=== PATIENT | female | born 1980 | race Caucasian/White ===

== ENCOUNTER → 2017-11-16 11:48 | Outpatient (CLI) | payer MEDICAID, SELFPAY ==
--- NOTE | 2017-11-16 11:54 | RAD_ITS ---
STUDY: X-RAY CHEST REASON FOR EXAM: Female, 37 years old. Chronic cough and wheezing since August 2016. TECHNIQUE: PA and lateral views of the chest. COMPARISON: None. FINDINGS: The lungs are clear and expanded. There is no demonstrated pleural abnormality. Normal size heart. Normal mediastinum and sherie. Normal visualized pulmonary arteries. Normal visualized aortic arch and descending thoracic aorta. Normal visualized thoracic spine. Normal visualized ribs, clavicles, and shoulders. There is no demonstrated abnormality of the visualized soft tissue structures of the upper abdomen. RAD/Chest PA and Lateral IMPRESSION: Normal x-ray examination of the chest. Electronically Signed: Dmitry Cormier DO at 12:37 EST Tel [phone], Service support ,
== END ==
PROVIDERS: Family Provider Family Medicine; PCP Family Medicine; Visit Provider Family Medicine
DX: R05 Cough (principal)
CPT/HCPCS: 71046

== ENCOUNTER → 2017-11-16 12:51 | Outpatient (CLI) | payer MEDICAID, SELFPAY ==
--- NOTE | 2017-11-16 | LES_PTH ---
PATIENT: CODY DUNNE LOC: [facility] U#:[id number] AGE/SX: 45/F ROOM: RE11/16/[address]: Dr. Pauly Trujillo DO : 1980 BED: DIS: SPEC #: [id number] RECD: 11/16/17 14:53 STATUS: KHOA NAYAN #: [id number] GUERO: 11/16/17 00:[address]: Pauly Trujillo DEPT: SURGICAL PATHOLOGY RECD BY: Dallin Iverson Tissues: A - Skin of arm B - Skin of arm Procedures: Surgery Specimen Level IV HEADER OPERATION: Excision lesion left upper arm; excision lesion right upper arm PRE-OP DIAGNOSIS: Rule out ATN left upper arm; rule out dermatofibroma vs ATN right upper arm TISSUE SUBMITTED: A ? Left upper arm, B ? Right upper arm MICROSCOPIC DIAGNOSIS A. Skin lesion of left upper arm, biopsy: Consistent with solar lentigo. B. Skin lesion of right upper arm, biopsy: Dermatofibroma. AM:sabine 11/17/17 MICROSCOPIC DESCRIPTION Slides are reviewed. GROSS DESCRIPTION A - Received is one container labeled with the patient's name and not further designated. The specimen consists of an irregular fragment of light lopez skin measuring 1.2 x 0.5 x 0.2 cm. The specimen is inked, sectioned and totally submitted in one cassette. B - Received is one container labeled with the patient's name and not further designated. The specimen consists of an irregular fragment of light lopez skin measuring 1 x 0.5 x 0.2 cm. The specimen is inked, sectioned and totally submitted in one cassette. / AM:sabine 11/16/17 TC:5 CPT: 84972
== END ==
PROVIDERS: Family Provider Family Medicine; PCP Family Medicine; Visit Provider Family Medicine
DX: D23.61 Other benign neoplasm of skin of right upper limb, including shoulder (principal)
CPT/HCPCS: 71046; 88305

== ENCOUNTER 2018-04-30 20:14 | Emergency (ER) | payer MEDICAID, SELFPAY ==
[2018-04-30 20:15] VITALS: BP 150/98; PULSE 99; RESP 16; TEMP 37.4; O2SAT 98; BMI 27.5
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
[2018-04-30] MEDS: HYDROcodone Bitartrate/Apap 5/325 Tablet PO (21:43)
== END 2018-04-30 21:44 | disposition home or self-care (01) ==
LOC: ED 21:31
PROVIDERS: Emergency Provider Emergency Medicine; Family Provider Family Medicine; PCP Family Medicine
DX: S16.1XXA Strain of muscle, fascia and tendon at neck level, initial encounter (principal); S29.012A Strain of muscle and tendon of back wall of thorax, initial encounter; V49.40XA Driver injured in collision with unspecified motor vehicles in traffic accident, initial encounter; Y93.9 Activity, unspecified; Y92.410 Unspecified street and highway as the place of occurrence of the external cause; Y99.8 Other external cause status; Z72.0 Tobacco use
CPT/HCPCS: 99282

== ENCOUNTER → 2018-05-03 17:04 | Outpatient (CLI) | payer MEDICAID, SELFPAY ==
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
== END ==
PROVIDERS: Family Provider Family Medicine; PCP Family Medicine; Visit Provider Family Medicine
DX: M54.2 Cervicalgia (principal); R20.0 Anesthesia of skin; V89.2XXA Person injured in unspecified motor-vehicle accident, traffic, initial encounter
CPT/HCPCS: 72050

== ENCOUNTER → 2019-04-11 14:18 | Outpatient (CLI) | payer MEDICAID, SELFPAY ==
[2018-10-29 16:15] VITALS: BMI 27.5
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
== END ==
PROVIDERS: Family Provider Family Medicine; PCP Family Medicine; Referring Provider Family Medicine; Visit Provider Family Medicine
DX: M25.511 Pain in right shoulder (principal)
CPT/HCPCS: 73030

== ENCOUNTER → 2019-06-13 12:35 | Outpatient (CLI) | payer MEDICAID, SELFPAY ==
[2018-10-29 16:15] VITALS: BMI 27.5
--- NOTE | 2019-06-13 12:46 | MRI_ITS ---
STUDY: MRI LEFT MIDFOOT REASON FOR EXAM: Female, 39 years old. TECHNIQUE: Standardized fat and water weighted pulse sequences were obtained in all 3 orthogonal planes. COMPARISON: None. FINDINGS: Normal talonavicular articulation. Normal calcaneocuboid articulation. Normal navicular-cuneiform articulations. Normal intercuneiform articulations. Small ganglion cyst of the lateral aspect of the tibiotalar joint (sagittal series 4 images 13-19). Mild arthrosis of the first tarsometatarsal articulation laterally (sagittal series 4 image 17). Normal Lisfranc ligament. Normal second and third tarsometatarsal articulations. Normal cuboid fourth and cuboid fifth tarsometatarsal articulation. Normal first through fifth metatarsi. Hammertoe deformities (sagittal series 4 images 2-17). Normal intrinsic muscles of the mid and forefoot region. Normal extensor digitorum brevis muscle. Normal subcutis adipose space. MRI/Lower Ext/No Jt/w/o IMPRESSION: Mild arthrosis of the first tarsometatarsal joint laterally. Hammertoe deformities. Ganglion cyst of the lateral aspect of the tibiotalar joint. Electronically Signed: Beck Love MD at 15:06 EDT , Service support ,
== END ==
PROVIDERS: Family Provider Family Medicine; PCP Family Medicine; Referring Provider Podiatrist; Visit Provider Podiatrist
DX: M84.375D Stress fracture, left foot, subsequent encounter for fracture with routine healing (principal); M79.672 Pain in left foot; S90.32XA Contusion of left foot, initial encounter
CPT/HCPCS: 73718

== ENCOUNTER 2021-01-27 11:02 | Emergency (ER) | payer MEDICAID, SELFPAY ==
[2020-12-10 13:10] VITALS: BMI 27.9
[2021-01-27 11:02] VITALS: BP 142/100; PULSE 74; RESP 16; TEMP 36.3; O2SAT 99; BMI 27.9
--- NOTE | 2021-01-27 11:12 | ED.VIS.GEN ---
History of Present Illness Chief Complaint: Abd Pain Informant: Patient Narrative: 40-year-old female presenting with left lower quadrant pain. She states she noticed this a couple of days ago and thought maybe she had gas. She states that she went to 3 local gas stations and was not able to find [employer] but did take some ibuprofen and the pain resolved. Patient states that this morning at about 5:30 AM she noticed the pain coming again. She describes it as sharp and nonradiating. She states she was sweaty and nauseous initially now she does has pain. She denies constipation or diarrhea. She denies urinary or vaginal complaints. She is not had a fever, chills. Patient has no history of kidney stones. She states she mostly has anxiety and depression problems but no other major medical issues. Past Medical History - Allergies and Home Meds Allergies/Adverse Reactions: Allergies shellfish derived Adverse Reaction (Verified 01/27/21 11:02) Vomiting Primary Care Physician: Pauly Trujillo DO [Primary Care Provider] - Prior records reviewed: Yes Past Medical History: - - Anxiety, depression Surgical History: noncontributory Lives: Alone Smoking Status: Current some day smoker Alcohol: None Drugs: None Review of Systems General: Denies: Chills, Fever, Sweats Eyes: Denies: Visual changes - bilaterally, Diplopia ENT: Denies: Rhinorrhea, Sore throat Cardiovascular: Denies: Chest pain, Palpitations Respiratory: Denies: Dyspnea, Cough, Dyspnea on exertion Gastrointestinal: Reports: Abdominal pain, Nausea. Denies: Vomiting, Diarrhea, Constipation, Melena, Hematochezia Genitourinary: Denies: Dysuria, Hematuria, Frequency Musculoskeletal: Denies: Back pain, Extremity Pain Skin: Denies: Rash, Wounds Neurological: Denies: Headache, Weakness, Numbness Psych: Denies: Depression, Anxiety, Suicidal thoughts, Suicidal ideations, -, - Physical Exam Vital Signs/Narrative: Vital Signs Temp Pulse Resp BP Pulse Ox 01/27/21 11:02 97.3 F L 74 16 142/100 H 99 Inital Vital Signs reviewed: Yes General: Well nourished, No Acute Distress Head: Normocephalic, Atraumatic Eyes: Perrl, EOMI ENT: Moist mucous membranes, No rhinorrhea Cardiovascular: Regular rate, Regular rhythm, No murmurs Respiratory: No distress, CTA bilaterally Abdomen: Soft, Nondistended, Tender - Mild tenderness to palpation left lower quadrant. Abdomen is nonperitoneal. Back: CVA tenderness - Mild left CVA tenderness. Negative for: Spinal tenderness Extremities: Nontender, No edema Skin: Normal color, No rash Neurological: Alert, Oriented x3, Cranial nerves II-XII grossly intact, Normal Strength, Normal Sensation Psychological: Normal affect, Normal Mood Diagnostic/Tx/Re-eval Clinical Impression(s) from Imaging Studies Abdomen/Pelvis CT 01/27/21 12:34 IMPRESSION: 1. Mild left hydronephrosis and left hydroureter secondary to 4.5 mm partially obstructing calculus in the left distal ureter. 2. 5.6 mm nonobstructing calculus in the left upper renal pole. Electronically Signed: Pasquale Archer MD at 13:16 EDT , Service support , Laboratory Data 01/27/21 01/27/21 01/27/21 11:14 11:14 11:37 WBC 14.5 H RBC 4.66 Hgb 13.5 Hct 42.2 MCV 90.6 MCH 29.0 MCHC 32.0 RDW Std Deviation 39.4 RDW Coeff of Nona 11.9 Plt Count 391 MPV 11.0 Immature Gran % (Auto) 0.400 Neut % (Auto) 87.6 H Lymph % (Auto) 8.2 L [place] % (Auto) 3.1 Eos % (Auto) 0.4 Baso % (Auto) 0.3 Absolute Neuts (auto) 12.7 H Absolute Lymphs (auto) 1.19 Nucleated RBC % 0 Sodium 138 Potassium 3.6 Chloride 106 Carbon Dioxide 28.0 Anion Gap 4 L BUN 15 Creatinine 0.88 Estim Creat Clear Calc 75.70 Est GFR (MDRD) Af Amer 91 Est GFR (MDRD) Non-Af 75 BUN/Creatinine Ratio 17.1 Glucose 166 H Calcium 9.5 Urine Color Yellow Urine Clarity Sl. Cloudy Urine pH 5.0 Ur Specific [place] 1.025 Urine Protein 30 H Urine Glucose (UA) Normal Urine Ketones 5 H Urine Occult Blood 250 H Urine Nitrite Negative Urine Bilirubin 1 H Urine Urobilinogen 1 H Ur Leukocyte Esterase 25 H Urine RBC > 100 SEEN Urine WBC 0 SEEN Ur Squamous Epith Cells 5-10 SEEN Urine Bacteria 0 SEEN Urine Mucus 0 SEEN - Medical Decision Making 40-year-old female presenting with left lower abdominal pain and on exam she has left CVA tenderness. Obtained blood work and this shows a slight leukocytosis of 14.1 otherwise her CBC is normal. Patient's BMP is unremarkable. Patient has urinalysis which shows hematuria without UTI. She is given Toradol and morphine in the ED as well as Zofran with improved comfort. CT of the abdomen pelvis without contrast shows a mild left hydronephrosis and left hydroureter secondary to 4.5 mm partially obstructing calculus in the left distal ureter. Patient will be given follow-up with Dr. Rowley. She is given prescriptions for Percocet, Zofran, Flomax given the location of her stone in the distal ureter. Patient given return precautions. Patient able discharge at this time. Impression: 1. Left flank pain 2. Hematuria 3. 4.5 mm left distal ureteral stone ED Disposition - Plan for ED Patient: Disposition: Home or Assisted Living Instructions: ED Kidney Stone w/ Colic Prescriptions: Tamsulosin HCl [Flomax] 0.4 mg PO DAILY #7 capsule Prescription Printed Oxycodone HCl/Acetaminophen [Percocet 5/325] 1 tablet PO Q6H PRN PRN 3 Days #12 tab PRN Reason: Pain Prescription Printed Ondansetron [Zofran Odt] 4 mg PO Q8H PRN PRN #14 tablet PRN Reason: Nausea Prescription Printed Referrals: Pauly Trujillo DO [Primary Care Provider] - David Rowley MD [STAFF PHYSICIAN] -
[2021-01-27] MEDS: Ketorolac 15 MG/ML Vial IV (11:27)
[2021-01-27] MEDS: Ondansetron 4 MG/2 ML Vial IV (11:27)
[2021-01-27 11:28] LABS: Absolute Lymphocyte Count 1.19 X10^3/uL (0.83-4.51); Absolute Neutrophil Count 12.7 X10^3/uL (2.0-7.7); Basophil# 0.05 X10^3/uL; Basophil% 0.3 % (0-1); Eosinophil# 0.06 X10^3/uL; Eosinophils% 0.4 % (0-5); Hematocrit 42.2 % (37-47); Hemoglobin 13.5 g/dL (12.0-15.0); Lymphocyte # 1.19 X10^3/ul (4.0); Lymphocyte % 8.2 % (19-41); Mean Corpuscular Volume 90.6 fL (81-99); Monocyte# 0.45 X10^3/uL; Monocyte% 3.1 % (0-10); NRBC Flagged by Analyzer 0 % (0-5); Neutrophil # 12.73 X10^3/uL (2.7-7.7); Neutrophil % 87.6 % (47-70); Platelet Count 391 K/mm3 (150-450); RBC Distribution Width CV 11.9 % (11.6-14.6); RBC Distribution Width SD 39.4 fl (35.1-43.9); Red Blood Count 4.66 M/mm3 (4.2-5.4); White Blood Count 14.5 K/mm3 (4.4-11.0)
[2021-01-27 11:41] LABS: Bacteria 0 SEEN /hpf (None Seen); Mucous, Urine 0 SEEN /hpf (<or=2+); White Blood Cells 0 SEEN /hpf (0-5)
[2021-01-27 11:45] LABS: Anion Gap 4 (5-15); BUN 15 mg/dL (7-18); BUN/Creat Ratio 17.1 RATIO (10-20); Calcium,Total 9.5 mg/dL (8.5-10.1); Chloride 106 mmol/L (98-107); Creatinine, Serum 0.88 mg/dL (0.55-1.02); EST Glomerular Filtration Rate 75 mL/min (>60); Est Glom Filt Rate - Afr Amer 91 mL/min (>60); Glucose 166 mg/dL (74-106); Potassium 3.6 mmol/L (3.5-5.1); Sodium Level 138 mmol/L (136-145)
[2021-01-27 12:32] LABS: Color, Urine Yellow (Yellow); Glucose, Dipstick Normal (Normal); Ketone-Dipstick 5 mg/dl (Negative); Leukocyte Esterase-Dipstick 25 /ul (Negative); Nitrite-Dipstick Negative (Negative); Occult Blood-Urine 250 /ul (Negative); Protein-Dipstick 30 mg/dl (Negative); Specific Gravity, Urine 1.025 (1.002-1.030); Urine Bilirubin Dipstick 1 mg/dL (Negative); Urine Clarity Sl. Cloudy (Clear); Urine Urobilinogen 1 mg/dl (Normal)
--- NOTE | 2021-01-27 12:34 | CT_ITS ---
EXAM: CT ABDOMEN AND PELVIS WITHOUT INTRAVENOUS CONTRAST CLINICAL INDICATION: Left flank pain. TECHNIQUE: Helically acquired images were obtained of the abdomen and pelvis without intravenous contrast. This CT exam was performed using one or more of the following dose reduction techniques: automated exposure control, adjustment of the mA and/or kV according to patient size, and/or use of iterative reconstruction technique. This report was created using CD[employer] report generation technology. COMPARISON: None. FINDINGS: LOWER THORAX: Unremarkable. Lung bases are clear. No cardiomegaly. No significant pericardial effusion. ABDOMEN: LIVER: Unremarkable. Homogeneous. GALLBLADDER AND BILE DUCTS: Unremarkable. No calcified gallstones. No gallbladder distention or wall edema. No intra- or extrahepatic biliary ductal dilation. PANCREAS: Unremarkable. No focal cystic mass. SPLEEN: Unremarkable. Normal size without focal cystic or solid mass. ADRENALS: Unremarkable. No nodules. KIDNEYS AND URETERS: Mild left hydronephrosis and mild left hydroureter secondary to 4.5 mm partially obstructing calculus in the left distal ureter. 5.6 mm nonobstructing calculus in the left upper renal pole. Normal right kidney. Normal renal size and position. STOMACH AND BOWEL: Unremarkable. No stomach or bowel distention. No focal inflammatory change. PELVIS: APPENDIX: Normal. BLADDER: Unremarkable. REPRODUCTIVE: Unremarkable as visualized. No mass. ABDOMEN and PELVIS: INTRAPERITONEAL SPACE: Unremarkable. No ascites or other fluid collection. No free air. BONES/JOINTS: Unremarkable. No suspicious lytic or blastic abnormality. SOFT TISSUES: Unremarkable. No discrete abdominal or pelvic wall hernia. VASCULATURE: Unremarkable. Abdominal aorta is non-dilated. LYMPH NODES: Unremarkable. No enlarged lymph nodes. CT/Abdomen/Pelvis without Cont IMPRESSION: 1. Mild left hydronephrosis and left hydroureter secondary to 4.5 mm partially obstructing calculus in the left distal ureter. 2. 5.6 mm nonobstructing calculus in the left upper renal pole. Electronically Signed: Pasquale Archer MD at 13:16 EDT , Service support ,
[2021-01-27 12:41] LABS: Red Blood Cells-Urine > 100 SEEN /hpf (0-5); Squamous Epithelial Cells - UA 5-10 SEEN /hpf (5-10)
[2021-01-27 13:08] VITALS: BP 115/81; PULSE 86; RESP 16; O2SAT 98
[2021-01-27] MEDS: Morphine 4 MG/ML Syringe IV (13:34)
[2021-01-27 14:09] VITALS: BP 133/69; PULSE 57; RESP 16; O2SAT 99
== END 2021-01-27 14:10 | disposition home or self-care (01) ==
PROVIDERS: Emergency Provider Student in an Organized Health Care Education/Training Program; PCP Family Medicine
DX: R10.9 Unspecified abdominal pain (principal); R31.9 Hematuria, unspecified; N13.2 Hydronephrosis with renal and ureteral calculous obstruction; F32.9 Major depressive disorder, single episode, unspecified; F41.9 Anxiety disorder, unspecified
CPT/HCPCS: 74176; 80048; 81001; 85025; 96374; 96375; 99284; A4216; J2405

== ENCOUNTER 2021-04-08 07:00 | Outpatient (RCR) | payer MEDICAID, SELFPAY ==
[2021-03-11 14:00] VITALS: BMI 27.9
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
--- NOTE | 2021-05-24 12:20 | HP.PT.NRP ---
CODY DUNNE was seen in my office for initial evaluation on 04/08/21. The following Plan of Care was established for this patient: Initial Frequency: 2x /Week Initial Duration: 4-6 Weeks Patient/Client Instruction: Educate patient on: Condition For the Purpose of:: To decrease pain, To increase ROM, To increase tolerance to activity/condition/position Therapeutic Exercise to Include: Strength training, Postural training, Flexibilty training, Passive ROM, Active ROM, Piper Exercises For the Purpose of:: To decrease pain, To increase ROM, To increase tolerance to activity/condition/position, To improve ability of physical actions for home/community/work/leisure Manual Therapy Techniques to Include: Mobilization, Soft tissue mobilization For the Purpose of:: To decrease pain, To increase ROM Intermittent cervical traction: Yes For the Purpose of:: To decrease pain, To increase ROM This patient was last seen in our office 04/08/21. Pertinent comments regarding their Physical therapy will appear below: Pt seen for initial evaluation adn POC established. She did not schedule or attend any further visits. at this point I will discontinue due to nonattendance. At this point I will be discontinuing this patient from physical therapy. I would be happy to see this patient again in the future if found appropriate by the physician. Thank you! Tahir Tabares, DPT, OCS, CSCS Balance/Gait/Functional tests - Balance/Special Test Scores Functional Gait Assessment Score: 30 % Disability: 0 Oswestry Neck Score: 24
== END 2021-04-08 19:00 | disposition home or self-care (01) ==
LOC: PT 07:00
PROVIDERS: PCP Family Medicine; Referring Provider Orthopaedic Surgery; Visit Provider Orthopaedic Surgery
DX: M50.00 Cervical disc disorder with myelopathy, unspecified cervical region (principal); M50.10 Cervical disc disorder with radiculopathy, unspecified cervical region
CPT/HCPCS: 97110; 97161

== ENCOUNTER 2022-06-09 10:13 | Emergency (ER) | payer MEDICAID, SELFPAY ==
[2022-06-09 10:14] VITALS: BP 173/106; PULSE 72; RESP 16; TEMP 36.1; O2SAT 100; BMI 26.6
--- NOTE | 2022-06-09 10:40 | CT_ITS ---
EXAM: CT ABDOMEN AND PELVIS WITHOUT INTRAVENOUS CONTRAST CLINICAL INDICATION: Kidney stone and left hydronephrosis. Follow-up. TECHNIQUE: Helically acquired images were obtained of the abdomen and pelvis without intravenous contrast. This CT exam was performed using one or more of the following dose reduction techniques: automated exposure control, adjustment of the mA and/or kV according to patient size, and/or use of iterative reconstruction technique. This report was created using [employer] report generation technology. RADIATION DOSE: CTDIvol = 7.34 mGy, DLP = 359.51 mGy-cm COMPARISON: CT abdomen and pelvis without contrast 01/27/2021. FINDINGS: LOWER THORAX: Unremarkable. Lung bases are clear. No cardiomegaly. No significant pericardial effusion. ABDOMEN: LIVER: Unremarkable. Homogeneous. GALLBLADDER AND BILE DUCTS: Unremarkable. No calcified gallstones. No gallbladder distention or wall edema. No intra- or extrahepatic biliary ductal dilation. PANCREAS: Unremarkable. No focal cystic mass. SPLEEN: Unremarkable. Normal size without focal cystic or solid mass. ADRENALS: Unremarkable. No nodules. KIDNEYS AND URETERS: Improvement of mild left hydronephrosis with distal migration of 3 mm partially obstructing calculus in the left posterior urinary bladder wall or left UVJ. The prominent nonobstructing calculus in the left upper renal pole and the tiny nonobstructing calculus in the left lower renal calyx are unchanged. No stones or hydronephrosis in the right kidney. STOMACH AND BOWEL: Unremarkable. No stomach or bowel distention. No focal inflammatory change. PELVIS: APPENDIX: Normal. BLADDER: Under distended urinary bladder. REPRODUCTIVE: Unremarkable as visualized. No mass. ABDOMEN and PELVIS: INTRAPERITONEAL SPACE: Unremarkable. No ascites or other fluid collection. No free air. BONES/JOINTS: Unremarkable. No suspicious lytic or blastic abnormality. SOFT TISSUES: Unremarkable. No discrete abdominal or pelvic wall hernia. VASCULATURE: Unremarkable. Abdominal aorta is non-dilated. LYMPH NODES: Unremarkable. No enlarged lymph nodes. CT/Abdomen/Pelvis without Cont IMPRESSION: 1. Improvement of mild left hydronephrosis with distal migration of 3 mm partially obstructing calculus in the left distal ureter into the left UVJ or left posterior urinary bladder wall. Accurate location is difficult to confirm due to under distended urinary bladder. 2. Prominent nonobstructing calculus in the left upper renal pole and tiny nonobstructing calculus in the left lower renal calyx are unchanged. Electronically Signed: Pasquale Archer MD at 12:08 EDT ,
--- NOTE | 2022-06-09 10:41 | EDS_ITS ---
HPI History of Present Illness Chief Complaint: Abd Pain Informant: patient Narrative Narrative: 42-year-old female presenting to the emergency department with a chief complaint of abdominal pain. She notes that symptoms began abruptly this morning. She describes it as sharp and stabbing associated with nausea and vomiting. She states initially when it began felt maybe she needed to have a bowel movement but when she went to the store it became significantly more intense. She denies any urinary hematuria. She states that she had 2 kidney stones last year and this feels similar. [facility] Medical History (Updated 06/09/22 @ 12:[address] Dmitriy Green, DO) Acute bronchitis, unspecified Encounter for screening for COVID-19 Home Medications dextroamphetamine-amphetamine ER 20 mg 24hr capsule,extend release 20 mg PO DAILY 30 days ##30 11/02/17 [History Last Taken Unknown] dextroamphetamine-amphetamine ER 30 mg 24hr capsule,extend release 30 mg PO DAILY 30 days ##30 11/02/17 [History Last Taken Unknown] escitalopram oxalate 10 mg tablet 10 mg PO DAILY 30 days ##30 11/02/17 [History Last Taken Unknown] levomefolate 15 mg-algal oil 90.314 mg capsule 30 mg PO DAILY 30 days ##30 11/02/17 [History Last Taken Unknown] fluconazole 100 mg tablet (Diflucan) 100 mg PO DAILY #2 tabs 11/06/18 [Rx Last Taken Unknown] ondansetron 4 mg disintegrating tablet 4 mg PO Q8H PRN PRN Nausea #14 tabs 01/27/21 [Rx Last Taken Unknown] tamsulosin 0.4 mg capsule 0.4 mg PO DAILY #7 CAPSULES 01/27/21 [Rx Last Taken Unknown] oxycodone-acetaminophen 5 mg-325 mg tablet 1 tab PO 03/11/21 [History Last Taken Unknown] fluconazole 200 mg tablet (Diflucan) 200 mg PO DAILY #1 TAB 09/30/21 [Rx Last Taken Unknown] levofloxacin 500 mg tablet 500 mg PO DAILY #10 tabs 09/30/21 [Rx Last Taken Unknown] ondansetron 4 mg disintegrating tablet 4 mg PO Q6H PRN PRN Nausea #20 tabs 06/09/22 [Rx Last Taken Unknown] oxycodone-acetaminophen 5 mg-325 mg tablet 1 tab PO Q6H PRN PRN pain 5 days #20 TABLETS 06/09/22 [Rx Last Taken Unknown] Allergy/AdvReac Type Severity Reaction Status Date / Time shellfish derived AdvReac Vomiting Verified 09/30/21 15:18 Surgical History (Updated 06/09/22 @ 11:11 by Kalli Abbott) H/O tubal ligation Hx of tonsillectomy Social History Smoking Status: Current some day smoker tobacco type: cigarettes alcohol intake: never ROS ROS ED Constitutional Constitutional ED: Denies chills or weight loss Eyes Eyes: Denies change in vision or diplopia ENT ENT ED: Denies ear pain, rhinorrhea or sore throat Cardiovascular Cardiovascular: Denies chest pain, orthopnea, palpitations or racing heartbeat Respiratory/Chest Respiratory/Chest: Denies cough, dyspnea or orthopnea Gastrointestinal Gastrointestinal: Reports abdominal pain, nausea and vomiting; Denies diarrhea Genitourinary Genitourinary ED: Denies dysuria, hematuria or urinary frequency Musculoskeletal Musculoskeletal: Denies arthralgias or myalgias Integumentary Denies abscess or rash Neurologic Neurologic: Denies headache(s) or weakness Psychiatric Psychiatric: Denies anxiety, depression, suicidal ideation or suicidal thoughts Endocrine Endocrinology: Denies polydipsia, polyphagia or polyuria Allergic/Immunologic Allergic/Immunologic ED: Denies mouth swelling, tongue swelling or urticaria EXAM Physical Exam Const Vital Signs: 06/09/22 10:14 Temperature 97.0 F L Temperature Source Temporal Pulse Rate 72 Respiratory Rate 16 Blood Pressure 173/106 H Blood Pressure Mean 128 Pulse Ox 100 Oxygen Delivery Method Room Air Positive well nourished and well developed General Appearance ED: well developed HEENT Reports normocephalic, head/scalp atraumatic and moist mucous membranes Eyes PERRL and EOMs intact bilaterally Neck no lymphadenopathy, supple and no JVD Resp normal respiratory effort and clear to auscultation bilaterally Cardio regular rate, regular rhythm and no murmurs GI Inspection: Negative for abdominal distention Auscultation: normoactive bowel sounds Palpation: soft and tender LLQ; Negative for rebound tenderness present Back/Spine no CVA tenderness and normal ROM Extremity normal to inspection General Extremety ED: Negative for edema General Extremity: Negative for edema Neuro oriented x3 and CN's II-XII intact bilaterally Sensorium / Orientation: alert Motor Exam: strength 5/5 throughout Psych mental status grossly normal Mood & Affect: Negative for depressed or tearful Skin no rashes or lesions noted and no wounds MDM MDM MDM Narrative Medical decision making narrative: White count is 9.2. Creatinine normal at 0.74. test is negative urinalysis demonstrates greater than 100 red cells 5-10 white cells negative nitrates but also 10-25 squamous cells and 1+ bacteria. I do not think this represents an overt infection but we will send that for culture. CT of the pelvis demonstrates a distal 3 mm stone. It is question if this is in the u reter or the bladder. Patient received pain and nausea medication and she feels significantly better on repeat exam. Patient will be discharged home with urologic follow-up and pain and nausea medicine return if worsening or any concerns Lab Data Attestation: I reviewed the patient's lab results. Labs: Laboratory Results - last 24 hr 06/09/22 06/09/22 06/09/22 11:09 11:09 11:09 WBC 9.2 RBC 4.71 Hgb 13.4 Hct 40.7 MCV 86.4 MCH 28.5 MCHC 32.9 RDW Std Deviation 40.5 RDW Coeff of Nona 12.8 Plt Count 344 MPV 11.1 Immature Gran % (Auto) 0.300 Neut % (Auto) 73.0 H Lymph % (Auto) 18.7 L [place] % (Auto) 5.3 Eos % (Auto) 2.3 Baso % (Auto) 0.4 Absolute Neuts (auto) 6.7 Absolute Lymphs (auto) 1.72 Nucleated RBC % 0 Sodium 139 Potassium 3.5 Chloride 104 Carbon Dioxide 29.0 Anion Gap 6 BUN 10 Creatinine 0.74 Estim Creat Clear Calc 88.21 Est GFR (MDRD) Af Amer 111 Est GFR (MDRD) Non-Af 92 BUN/Creatinine Ratio 13.6 Glucose 123 H Calcium 8.9 Serum , Qual NEGATIVE Urine Color Urine Clarity Urine pH Ur Specific [place] Urine Protein Urine Glucose (UA) Urine Ketones Urine Occult Blood Urine Nitrite Urine Bilirubin Urine Urobilinogen Ur Leukocyte Esterase Urine RBC Urine WBC Ur Squamous Epith Cells Urine Bacteria Urine Mucus 06/09/22 11:09 WBC RBC Hgb Hct MCV MCH MCHC RDW Std Deviation RDW Coeff of Nona Plt Count MPV Immature Gran % (Auto) Neut % (Auto) Lymph % (Auto) [place] % (Auto) Eos % (Auto) Baso % (Auto) Absolute Neuts (auto) Absolute Lymphs (auto) Nucleated RBC % Sodium Potassium Chloride Carbon Dioxide Anion Gap BUN Creatinine Estim Creat Clear Calc Est GFR (MDRD) Af Amer Est GFR (MDRD) Non-Af BUN/Creatinine Ratio Glucose Calcium Serum , Qual Urine Color [place] Urine Clarity Cloudy Urine pH 6.0 Ur Specific [place] 1.025 Urine Protein 30 H Urine Glucose (UA) Normal Urine Ketones 5 H Urine Occult Blood 250 H Urine Nitrite Negative Urine Bilirubin 1 H Urine Urobilinogen 4 H Ur Leukocyte Esterase 100 H Urine RBC > 100 SEEN Urine WBC 5-10 SEEN Ur Squamous Epith Cells 10-25 SEEN Urine Bacteria 1+ Urine Mucus 2+ Radiography Diagnostic Testing: Clinical Impression(s) from Imaging Studies Abdomen/Pelvis CT 06/09/22 10:40 IMPRESSION: 1. Improvement of mild left hydronephrosis with distal migration of 3 mm partially obstructing calculus in the left distal ureter into the left UVJ or left posterior urinary bladder wall. Accurate location is difficult to confirm due to under distended urinary bladder. 2. Prominent nonobstructing calculus in the left upper renal pole and tiny nonobstructing calculus in the left lower renal calyx are unchanged. Electronically Signed: Pasquale Archer MD at 12:08 EDT , Discharge Plan Triage Chief Complaint: Abd Pain ED Provider: Dmitriy Green Dx/Rx/DC Orders Clinical Impression: Ureterolithiasis, Abdominal pain, acute, Vomiting Instructions: ED Kidney Stone w/ Colic Prescriptions: New oxycodone-acetaminophen [oxycodone-acetaminophen] 5-325 mg tablet 1 tab PO Q6H PRN PRN (Reason: pain) 5 Days Qty: 20 0RF ondansetron [ondansetron] 4 mg tablet,disintegrating 4 mg PO Q6H PRN PRN (Reason: Nausea) Qty: 20 0RF No Action dextroamphetamine-amphetamine 20 mg capsule,extended release 24hr 20 mg PO DAILY 30 Days Qty: 30 Label Comments: TAKE 1 CAPSULE EVERY MORNING dextroamphetamine-amphetamine 30 mg capsule,extended release 24hr 30 mg PO DAILY 30 Days Qty: 30 Label Comments: TAKE 1 CAPSULE EVERY DAY escitalopram oxalate 10 mg tablet 10 mg PO DAILY 30 Days Qty: 30 Label Comments: Take 1 tab by mouth once daily levomefolate-algal oil 15-90.314 mg capsule 30 mg PO DAILY 30 Days Qty: 30 Label Comments: Take 1 tab by mouth once daily oxycodone-acetaminophen 5-325 mg tablet 1 tab PO Label Comments: TAKE 1 TABLET BY MOUTH EVERY SIX HOURS NEEDED FOR PAIN levofloxacin 500 mg tablet 500 mg PO DAILY Qty: 10 0RF Rx Instructions: currently not on diflucan fluconazole [Diflucan] 200 mg tablet 200 mg PO DAILY Qty: 1 0RF Rx Instructions: pt aware to not take until 24hrs after completing levofloxacin ondansetron 4 MG tablet 4 mg PO Q8H PRN PRN (Reason: Nausea) Qty: 14 0RF tamsulosin 0.4 MG capsule 0.4 mg PO DAILY Qty: 7 0RF fluconazole [Diflucan] 100 mg tablet 100 mg PO DAILY Qty: 2 0RF Rx Instructions: One today and one in 3 days of symptoms persist Primary Care Provider: Pauly Trujillo Referrals: David Rowley MD [Med Staff - Active Staff] - As Needed (for Urologic consultation) Pauly Trujillo DO [Primary Care Provider] - As soon as possible Disposition Disposition: Home, Self Care
[2022-06-09] MEDS: Ketorolac 30 MG/ML Syringe IV (11:03)
[2022-06-09] MEDS: 0.9% Normal Saline 1,000 ML 250 ML IV (11:03)
[2022-06-09] MEDS: Ondansetron 4 MG/2 ML Vial IV (11:03)
[2022-06-09] MEDS: Morphine 4 MG/ML Syringe IV (11:03)
[2022-06-09 11:18] LABS: Absolute Lymphocyte Count 1.72 X10^3/uL (0.83-4.51); Absolute Neutrophil Count 6.7 X10^3/uL (2.0-7.7); Basophil# 0.04 X10^3/uL; Basophil% 0.4 % (0-1); Eosinophil# 0.21 X10^3/uL; Eosinophils% 2.3 % (0-5); Hematocrit 40.7 % (37-47); Hemoglobin 13.4 g/dL (12.0-15.0); Lymphocyte # 1.72 X10^3/ul (0.83-4.51); Lymphocyte % 18.7 % (19-41); Mean Corp Hgb Conc 32.9 g/dL (32-36); Mean Corpuscular Hgb 28.5 pg (27.0-32.0); Mean Corpuscular Volume 86.4 fL (81-99); Mean Platelet Vol. 11.1 fl (6.2-12.0); Monocyte# 0.49 X10^3/uL; Monocyte% 5.3 % (0-10); NRBC Flagged by Analyzer 0 % (0-5); Neutrophil # 6.73 X10^3/uL (2.7-7.7); Platelet Count 344 K/mm3 (150-450); RBC Distribution Width CV 12.8 % (11.6-14.6); RBC Distribution Width SD 40.5 fl (35.1-43.9); Red Blood Count 4.71 M/mm3 (4.2-5.4); White Blood Count 9.2 K/mm3 (4.4-11.0)
[2022-06-09 11:21] LABS: Color, Urine Amber (Yellow); Glucose, Dipstick Normal (Normal); Ketone-Dipstick 5 mg/dl (Negative); Leukocyte Esterase-Dipstick 100 /ul (Negative); Nitrite-Dipstick Negative (Negative); Occult Blood-Urine 250 /ul (Negative); Protein-Dipstick 30 mg/dl (Negative); Specific Gravity, Urine 1.025 (1.002-1.030); Urine Clarity Cloudy (Clear); Urine Urobilinogen 4 mg/dl (Normal)
[2022-06-09 11:22] LABS: Urine Bilirubin Dipstick 1 mg/dL (Negative)
[2022-06-09 11:26] LABS: Internal QC Validated? YES +Cl - CLEAR BKGD; Pregnancy, Serum, hCG Quali. NEGATIVE Negative
[2022-06-09 11:30] LABS: Anion Gap 6 (5-15); BUN 10 mg/dL (7-18); BUN/Creat Ratio 13.6 RATIO (10-20); Calcium,Total 8.9 mg/dL (8.5-10.1); Chloride 104 mmol/L (98-107); Creatinine, Serum 0.74 mg/dL (0.55-1.02); EST Glomerular Filtration Rate 92 mL/min (>60); Est Glom Filt Rate - Afr Amer 111 mL/min (>60); Estimated Creatinine Clearance 88.21 ml/min; Glucose 123 mg/dL (74-106); Potassium 3.5 mmol/L (3.5-5.1); Sodium Level 139 mmol/L (136-145)
[2022-06-09 11:34] LABS: Squamous Epithelial Cells - UA 10-25 SEEN /hpf (5-10)
[2022-06-09 11:35] LABS: Red Blood Cells-Urine > 100 SEEN /hpf (0-5); White Blood Cells 5-10 SEEN /hpf (0-5)
[2022-06-09 11:36] LABS: Bacteria 1+ /hpf (None Seen); Mucous, Urine 2+ /hpf (<or=2+)
== END 2022-06-09 12:52 | disposition home or self-care (01) ==
PROVIDERS: Emergency Provider Emergency Medicine; PCP Family Medicine; Visit Provider Emergency Medicine
DX: N13.2 Hydronephrosis with renal and ureteral calculous obstruction (principal); R11.2 Nausea with vomiting, unspecified; R10.9 Unspecified abdominal pain
CPT/HCPCS: 74176; 80048; 81001; 84703; 85025; 96361; 96374; 96375; 99283; J7030; J2405

== ENCOUNTER 2022-11-09 01:44 | Emergency (ER) | payer MEDICAID, SELFPAY ==
[2022-11-09 01:45] VITALS: BP 151/107; PULSE 86; RESP 18; TEMP 36.4; O2SAT 100; BMI 28.0
[2022-11-09] MEDS: Clindamycin HCl 150 MG Capsule 450 MG PO (02:30)
--- NOTE | 2022-11-09 02:59 | EDS_ITS ---
HPI History of Present Illness Chief Complaint: Dental Informant: patient and spouse/S.O. Narrative Narrative: Status post root canal right lower 3 days ago. States that the temporary filling. She is on amoxicillin. Continued swelling was placed on Medrol Dosep ak by her dentist on Thursday. No fevers. Denies hot cold sensitivities however today noted swelling more under her chin. She also is on tramadol for pain control using ibuprofen. She is concerned of the swelling noted couple blisters on her tongue. Denies any trouble swallowing. [facility] Medical History Acute bronchitis, unspecified Encounter for screening for COVID-19 Home Medications dextroamphetamine-amphetamine ER 20 mg 24hr capsule,extend release 20 mg PO DAILY 30 days ##30 11/02/17 [History Last Taken Unknown] dextroamphetamine-amphetamine ER 30 mg 24hr capsule,extend release 30 mg PO DAILY 30 days ##30 11/02/17 [History Last Taken Unknown] escitalopram oxalate 10 mg tablet 10 mg PO DAILY 30 days ##30 11/02/17 [History Last Taken Unknown] levomefolate 15 mg-algal oil 90.314 mg capsule 30 mg PO DAILY 30 days ##30 11/02/17 [History Last Taken Unknown] fluconazole 100 mg tablet (Diflucan) 100 mg PO DAILY #2 tabs 11/06/18 [Rx Last Taken Unknown] ondansetron 4 mg disintegrating tablet 4 mg PO Q8H PRN PRN Nausea #14 tabs 01/27/21 [Rx Last Taken Unknown] tamsulosin 0.4 mg capsule 0.4 mg PO DAILY #7 CAPSULES 01/27/21 [Rx Last Taken Unknown] oxycodone-acetaminophen 5 mg-325 mg tablet 1 tab PO 03/11/21 [History Last Taken Unknown] fluconazole 200 mg tablet (Diflucan) 200 mg PO DAILY #1 TAB 09/30/21 [Rx Last Taken Unknown] levofloxacin 500 mg tablet 500 mg PO DAILY #10 tabs 09/30/21 [Rx Last Taken U nknown] ondansetron 4 mg disintegrating tablet 4 mg PO Q6H PRN PRN Nausea #20 tabs 06/09/22 [Rx Last Taken Unknown] oxycodone-acetaminophen 5 mg-325 mg tablet 1 tab PO Q6H PRN PRN pain 5 days #20 TABLETS 06/09/22 [Rx Last Taken Unknown] clindamycin HCl 150 mg capsule (Cleocin HCl) 450 mg PO TID #90 caps 11/09/22 [Rx Last Taken Unknown] Allergy/AdvReac Type Severity Reaction Status Date / Time shellfish derived AdvReac Vomiting Verified 09/30/21 15:18 Surgical History H/O tubal ligation Hx of tonsillectomy Social History Smoking Status: Current some day smoker tobacco type: cigarettes alcohol intake: never ROS ROS ED Constitutional Constitutional ED: Denies chills, fever(s) or sweats Eyes Eyes: Denies change in vision ENT ENT ED: Reports other Details: Facial swelling ; Denies dysphagia or sore throat Cardiovascular Cardiovascular: Denies chest pain, leg edema, palpitations or racing heartbeat Respiratory/Chest Respiratory/Chest: Denies cough, dyspnea or dyspnea on exertion Gastrointestinal Gastrointestinal: Denies abdominal pain, diarrhea, nausea or vomiting Genitourinary Genitourinary ED: Denies dysuria, hematuria or urinary frequency Musculoskeletal Musculoskeletal: Denies back pain, extremity pain or neck pain Integumentary Denies rash or wounds Neurologic Neurologic: Denies headache(s), paresthesias or weakness EXAM Physical Exam Const Vital Signs: 11/09/22 01:45 Temperature 97.6 F L Temperature Source Oral Pulse Rate 86 Respiratory Rate 18 Blood Pressure 151/107 H Blood Pressure Mean 121 Pulse Ox 100 Oxygen Delivery Method Room Air Positive well nourished and well developed General Appearance ED: well developed and NAD HEENT Reports moist mucous membranes HEENT Narrative: No tenderness to percussion tooth 29-31. Dental procedure on tooth 29. There is silver dental fillings on 30 and 31. No tenderness to percussion. No gum swelling there is no swelling or edema there is couple small clear blisters anteriorly. Mild mandibular swelling and submental swelling the right. No crepitus. normocephalic and atraumatic Eyes PERRL, EOMs intact bilaterally and conjunctivae normal General Eye ED: Yes normal appearance of both eyes Neck no lymphadenopathy and supple General: Negative for tenderness Chest Wall Chest: Negative for tenderness Resp normal respiratory effort and normal air movement Effort and Inspection: symmetric chest movement; Negative for respiratory distress Cardio regular rate, regular rhythm and no murmurs Peripheral Pulses: pulses 2+ throughout GI normal to inspection, nondistended, normoactive bowel sounds and non-tender Palpation: Negative for guarding or rebound tenderness present Back/Spine no CVA tenderness and no thoracic nor lumbar tenderness Extremity normal to inspection General Extremety ED: Negative for edema or tenderness General Extremity: Negative for edema Neuro oriented x3 and no sensory deficits noted Sensorium / Orientation: awake and alert Skin no rashes or lesions noted and no wounds MDM MDM MDM Narrative Medical decision making narrative: Patient nontoxic. Differentials dentalgia with worsening dental caries there is no clinical concerns for low-grade angina or dental abscess at this time. Due to reported increasing swelling today we will change her antibiotics to clindamycin and she will hold amoxicillin. She is on ibuprofen and tramadol for pain. She will call her dentist on Thursday for outpatient follow-up evaluation. All questions were answered. Discharge Plan Triage Chief Complaint: Dental ED Provider: Leopoldo King Dx/Rx/DC Orders Clinical Impression: Dentalgia Instructions: ED Dental Pain Prescriptions: New clindamycin HCl [Cleocin HCl] 150 mg capsule 450 mg PO TID Qty: 90 0RF No Action dextroamphetamine-amphetamine 20 mg capsule,extended release 24hr 20 mg PO DAILY 30 Days Qty: 30 Label Comments: TAKE 1 CAPSULE EVERY MORNING dextroamphetamine-amphetamine 30 mg capsule,extended release 24hr 30 mg PO DAILY 30 Days Qty: 30 Label Comments: TAKE 1 CAPSULE EVERY DAY escitalopram oxalate 10 mg tablet 10 mg PO DAILY 30 Days Qty: 30 Label Comments: Take 1 tab by mouth once daily levomefolate-algal oil 15-90.314 mg capsule 30 mg PO DAILY 30 Days Qty: 30 Label Comments: Take 1 tab by mouth once daily oxycodone-acetaminophen 5-325 mg tablet 1 tab PO Label Comments: TAKE 1 TABLET BY MOUTH EVERY SIX HOURS NEEDED FOR PAIN levofloxacin 500 mg tablet 500 mg PO DAILY Qty: 10 0RF Rx Instructions: currently not on diflucan fluconazole [Diflucan] 200 mg tablet 200 mg PO DAILY Qty: 1 0RF Rx Instructions: pt aware to not take until 24hrs after completing levofloxacin ondansetron 4 MG tablet 4 mg PO Q8H PRN PRN (Reason: Nausea) Qty: 14 0RF tamsulosin 0.4 MG capsule 0.4 mg PO DAILY Qty: 7 0RF oxycodone-acetaminophen [oxycodone-acetaminophen] 5-325 mg tablet 1 tab PO Q6H PRN PRN (Reason: pain) 5 Days Qty: 20 0RF ondansetron [ondansetron] 4 mg tablet,disintegrating 4 mg PO Q6H PRN PRN (Reason: Nausea) Qty: 20 0RF fluconazole [Diflucan] 100 mg tablet 100 mg PO DAILY Qty: 2 0RF Rx Instructions: One today and one in 3 days of symptoms persist Primary Care Provider: Pauly Trujillo Referrals: Pauly Trujillo DO [Primary Care Provider] - Activity Restrictions/Additional Instructions: Hold amoxicillin. use clindamycin. Follow-up with your dentist on Thursday. Disposition Disposition: Home, Self Care Discharge Date/Time: 11/09/22 02:34
== END 2022-11-09 02:34 | disposition home or self-care (01) ==
PROVIDERS: Emergency Provider Emergency Medicine; PCP Family Medicine; Visit Provider Emergency Medicine
DX: K08.89 Other specified disorders of teeth and supporting structures (principal); F17.210 Nicotine dependence, cigarettes, uncomplicated
CPT/HCPCS: 99283

== ENCOUNTER 2022-11-13 05:25 | Emergency (ER) | payer MEDICAID, SELFPAY ==
[2022-11-13 05:27] VITALS: BP 182/108; PULSE 77; RESP 20; TEMP 36.6; O2SAT 99; BMI 27.6
--- NOTE | 2022-11-13 05:39 | CT_ITS ---
EXAM: CT NECK WITH INTRAVENOUS CONTRAST CLINICAL INDICATION: infection/pain, concern for Ludwigs TECHNIQUE: Helically acquired images were obtained of the neck with intravenous contrast. This CT exam was performed using one or more of the following dose reduction techniques: automated exposure control, adjustment of the mA and/or kV according to patient size, and/or use of iterative reconstruction technique. This report was created using [employer] report generation technology. CONTRAST: IV 75mL [id number]-370 RADIATION DOSE: CTDIvol = 17.41 mGy, DLP = 565.33 mGy-cm. COMPARISON: None. FINDINGS: BRAIN AND EXTRA-AXIAL SPACES: The included intracranial structures appear unremarkable. NASOPHARYNX: Unremarkable. SUPRAHYOID NECK: Unremarkable. Oropharynx, oral cavity, parapharyngeal space and retropharyngeal space are unremarkable. INFRAHYOID NECK: Unremarkable. The larynx, hypopharynx and supraglottis are unremarkable. SUBMANDIBULAR/PAROTID GLANDS: No significantly enlarged submandibular gland. Symmetric parotids. THYROID: Unremarkable. No enlarged or calcified nodules. SINUSES: Trace mucosal thickening in ethmoid and right maxillary sinus. AUDITORY SYSTEM: Well-aerated middle ears and mastoids sinuses. Patent external auditory canals. DENTAL: Multiple dental fillings and root canals, no large periapical lucencies. BONES/JOINTS: Minimal disc space narrowing and anterior spondylosis at 6-7, no intraspinous enhancement. No acute fracture. SOFT TISSUES: There is submandibular soft tissue swelling and fascial thickening and mild, greater on the right. Soft tissue swelling adjacent to the right mandible, no loculated fluid collection. VASCULATURE: Patent jugular and carotid vessels bilaterally. LYMPH NODES: Multiple mildly enlarged and enhancing right submandibular and upper cervical lymph nodes, presumably reactive. Asymmetrically enlarged and mildly enhances right jugulodigastric lymph node of 1 cm short axis. Multiple right submandibular mildly enhancing lymph nodes of up to 1 cm. No necrotic lymph nodes. LUNG APICES: See above. CT/Soft Tissue Neck WITH Contrast IMPRESSION: 1. Right perimandibular and right greater than left inframandibular swelling and inflammation. Mild submandibular fascial thickening. 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 2. Right submandibular and upper cervical mild enhancing adenopathy. Most likely reactive. No necrotic lymph nodes. 3. Symmetric parotid and submandibular glands. 4. No discrete drainable fluid collection 5. Bilateral mandible and right maxillary root canals. No prominent periapical dental lucencies. 6. No significant peritonsillar swelling or retropharyngeal fluid collection in N.B. : The above Results were Read Back by Shahida Cleveland MD to Rey Jimenez MD, and understanding confirmed on 11/13/2022 07:13:26 (ET). Electronically Signed: Shahida Cleveland MD at 7:08 EST ,
--- NOTE | 2022-11-13 05:41 | EDS_ITS ---
HPI History of Present Illness Chief Complaint: Dental Informant: patient Onset/Context/Timing Onset: Weeks (1) Context: Gradual Onset Timing: Continuous Quality: Throbbing Location: Right jaw Current Severity: Severe Maximum Severity: Severe Worsened by: Moving jaw Relieved by: - (Nothing including antibiotics and hydrocodone) Associated Symptoms Assocated Symptom - Dental: jaw swelling; Negative for fever Narrative Narrative: Patient had dental pain and was referred by her dentist to a specialist who did a root canal 1 week ago on a right mandibular cuspid. Subsequently she started having pain and swelling, the specialist put her on a Medrol Dosepak which she just finished, she took 2 days of amoxicillin and then was seen here and switched to clindamycin, and total she now has been on antibiotics for 7 days. The pain and swelling continues to worsen and this morning it is so severe that she cannot tolerate it. She is not having dyspnea. She denies any fevers or chills. She is having some scant amounts of pus coming out of the base of the affected tooth. [facility] Medical History Acute bronchitis, unspecified Encounter for screening for COVID-19 Home Medications dextroamphetamine-amphetamine ER 30 mg 24hr capsule,extend release 30 mg PO DAILY 30 days ##30 11/02/17 [History Last Taken Unknown] escitalopram oxalate 10 mg tablet 10 mg PO DAILY 30 days ##30 11/02/17 [History Last Taken Unknown] levomefolate 15 mg-algal oil 90.314 mg capsule 30 mg PO DAILY 30 days ##30 11/02/17 [History Last Taken Unknown] tamsulosin 0.4 mg capsule 0.4 mg PO DAILY #7 CAPSULES 01/27/21 [Rx Last Taken Unknown] fluconazole 200 mg tablet (Diflucan) 200 mg PO DAILY #1 TAB 09/30/21 [Rx Last Taken Unknown] ondansetron 4 mg disintegrating tablet 4 mg PO Q6H PRN PRN Nausea #20 tabs 06/09/22 [Rx Last Taken Unknown] oxycodone-acetaminophen 5 mg-325 mg tablet 1 tab PO Q6H PRN PRN pain 5 days #20 TABLETS 06/09/22 [Rx Last Taken Unknown] clindamycin HCl 150 mg capsule (Cleocin HCl) 450 mg PO TID #90 caps 11/09/22 [Rx Last Taken Unknown] hydrocodone-acetaminophen 5-325mg 5mg-325mg 1 - 2 tab PO Q6H PRN PRN Pain 11/13/22 [History Last Taken Unknown] Allergy/AdvReac Type Severity Reaction Status Date / Time shellfish derived AdvReac Vomiting Verified 11/13/22 05:26 Surgical History H/O tubal ligation Hx of tonsillectomy Social History Smoking Status: Current some day smoker tobacco type: cigarettes alcohol intake: never ROS ROS ED Constitutional Constitutional ED: Denies chills or fever(s) Eyes Eyes: Denies change in vision or double vision ENT ENT ED: Reports dental pain; Denies sinus pain or throat swelling Cardiovascular Cardiovascular: Denies chest pain or palpitations Respiratory/Chest Respiratory/Chest: Denies cough or dyspnea Integumentary Denies abscess or rash Neurologic Neurologic: Denies headache(s), paresthesias or weakness EXAM Physical Exam Const Vital Signs: 11/13/22 05:27 Temperature 97.9 F Temperature Source Temporal Pulse Rate 77 Respiratory Rate 20 H Blood Pressure 182/108 H Blood Pressure Mean 132 Pulse Ox 99 Oxygen Delivery Method Room Air Positive well nourished and well developed General Appearance ED: well developed and NAD HEENT HEENT Narrative: Tender right mandibular cuspid, there is evidence of pus/abscess at the associated gingiva there, and the patient has swelling externally throughout the mandible surrounding this area and extending into the submental fossa. Very mild trismus but she can open. No tongue elevation. Sublingual soft tissues are not distended, but she does have some tenderness on the right sublingual fossa. No purulent discharge from any salivary ducts. No stridor. Patient can lie back without any respiratory distress. Voice is normal without hoarseness. Face and Sinus: sinuses nontender Throat: posterior oropharynx normal Eyes PERRL and EOMs intact bilaterally Neck no lymphadenopathy and supple Lymph Lymphatic: no lymphadenopathy noted Resp normal respiratory effort, no retractions and clear to auscultation bilaterally Extremity normal to inspection General Extremety ED: Negative for edema General Extremity: Negative for edema Neuro oriented x3, CN's II-XII intact bilaterally and gait normal Sensorium / Orientation: alert Gait (Neuro): normal gait Psych thought process normal Mood & Affect: anxious and tearful Skin no rashes or lesions noted and no wounds MDM MDM MDM Narrative Medical decision making narrative: Patient does not currently have true Radha's angina, however my concern is for early deep space process, cellulitis versus abscess is considered, and for this reason I think CT of the neck soft tissues with IV contrast is warranted/indicated. In addition to obtaining this, basic labs, IV vancomycin, IV morphine and Zofran are also ordered. I did review the CT images, and discussed the CT results with the radiologist who interpreted them. My interpretation of the CT agrees with that of the radiologist. There is no discrete collection or airway/esophageal impingement. Patient's trismus is very mild, she can open her mouth fairly well and expose the affected tooth. This is even before she was treated for her pain. I discussed this case with oral maxillofacial surgery Dr. Wyatt, and based on these findings, including the leukocytosis which may largely have to do with her recently being on methylprednisolone for the past week especially since there is not a strong left shift or bandemia, he agrees that the patient does not necessarily require admission and is comfortable seeing her and evaluating her for local anesthesia and dental extraction of the affected tooth as an outpatient today when the clinic opens. I discussed this with the patient. She is comfortable with going forward with this as an outpatient. She was still in pain after the morphine although it did take the edge off, so I am giving her a dose of Dilaudid in addition to Decadron 10 mg prior to discharge, after finishing the vancomycin 50 mg/kg. Lab Data Attestation: I reviewed the patient's lab results. Labs: Laboratory Results - last 24 hr 11/13/22 11/13/22 05:51 05:51 WBC 16.9 H RBC 4.35 Hgb 12.1 Hct 38.0 MCV 87.4 MCH 27.8 MCHC 31.8 L RDW Std Deviation 41.6 RDW Coeff of Nona 13.0 Plt Count 467 H MPV 10.7 Immature Gran % (Auto) 0.700 Neut % (Auto) 66.6 Lymph % (Auto) 21.5 [place] % (Auto) 8.0 Eos % (Auto) 2.8 Baso % (Auto) 0.4 Absolute Neuts (auto) 11.2 H Absolute Lymphs (auto) 3.63 Nucleated RBC % 0 Sodium 139 Potassium 3.5 Chloride 105 Carbon Dioxide 28.0 Anion Gap 6 BUN 10 Creatinine 0.61 Estim Creat Clear Calc 115.64 Est GFR (MDRD) Af Amer 138 Est GFR (MDRD) Non-Af 114 BUN/Creatinine Ratio 16.5 Glucose 158 H Calcium 8.8 Radiography Diagnostic Testing: Clinical Impression(s) from Imaging Studies Soft Tissue Neck CT 11/13/22 05:39 IMPRESSION: 1. Right perimandibular and right greater than left inframandibular swelling and inflammation. Mild submandibular fascial thickening. 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 2. Right submandibular and upper cervical mild enhancing adenopathy. Most likely reactive. No necrotic lymph nodes. 3. Symmetric parotid and submandibular glands. 4. No discrete drainable fluid collection 5. Bilateral mandible and right maxillary root canals. No prominent periapical dental lucencies. 6. No significant peritonsillar swelling or retropharyngeal fluid collection in N.B. : The above Results were Read Back by Shahida Cleveland MD to Rey Jimenez MD, and understanding confirmed on 11/13/2022 07:13:26 (ET). Electronically Signed: Shahida Cleveland MD at 7:08 EST , Discharge Plan Triage Chief Complaint: Dental ED Provider: Rey Jimenez Dx/Rx/DC Orders Clinical Impression: Dental infection, History of root canal procedure Instructions: ED Dental Abscess Facial Cellulitis Prescriptions: No Action dextroamphetamine-amphetamine 30 mg capsule,extended release 24hr 30 mg PO DAILY 30 Days Qty: 30 Label Comments: TAKE 1 CAPSULE EVERY DAY escitalopram oxalate 10 mg tablet 10 mg PO DAILY 30 Days Qty: 30 Label Comments: Take 1 tab by mouth once daily levomefolate-algal oil 15-90.314 mg capsule 30 mg PO DAILY 30 Days Qty: 30 Label Comments: Take 1 tab by mouth once daily fluconazole [Diflucan] 200 mg tablet 200 mg PO DAILY Qty: 1 0RF Rx Instructions: pt aware to not take until 24hrs after completing levofloxacin tamsulosin 0.4 MG capsule 0.4 mg PO DAILY Qty: 7 0RF oxycodone-acetaminophen [oxycodone-acetaminophen] 5-325 mg tablet 1 tab PO Q6H PRN PRN (Reason: pain) 5 Days Qty: 20 0RF ondansetron [ondansetron] 4 mg tablet,disintegrating 4 mg PO Q6H PRN PRN (Reason: Nausea) Qty: 20 0RF clindamycin HCl [Cleocin HCl] 150 mg capsule 450 mg PO TID Qty: 90 0RF hydrocodone-acetaminophen 5-325 mg tablet 1 - 2 tab PO Q6H PRN PRN (Reason: Pain) Primary Care Provider: Pauly Trujillo Referrals: Pauly Trujillo DO [Primary Care Provider] - Tigre Sharp DDS [Med Staff - Active Staff] - As soon as possible (today -- call at or after 8a for appt time to be seen today by Dr. Wyatt) Disposition Disposition: Home, Self Care
[2022-11-13] MEDS: Ondansetron 4 MG/2 ML Vial IV (05:58)
[2022-11-13] MEDS: Morphine 4 MG/ML Syringe IV (05:58)
[2022-11-13 06:04] LABS: Absolute Lymphocyte Count 3.63 X10^3/uL (0.83-4.51); Absolute Neutrophil Count 11.2 X10^3/uL (2.0-7.7); Basophil# 0.07 X10^3/uL; Basophil% 0.4 % (0-1); Eosinophil# 0.47 X10^3/uL; Eosinophils% 2.8 % (0-5); Hemoglobin 12.1 g/dL (12.0-15.0); Lymphocyte # 3.63 X10^3/ul (0.83-4.51); Lymphocyte % 21.5 % (19-41); Mean Corp Hgb Conc 31.8 g/dL (32-36); Mean Corpuscular Hgb 27.8 pg (27.0-32.0); Mean Corpuscular Volume 87.4 fL (81-99); Mean Platelet Vol. 10.7 fl (6.2-12.0); Monocyte# 1.34 X10^3/uL; NRBC Flagged by Analyzer 0 % (0-5); Neutrophil # 11.22 X10^3/uL (2.7-7.7); Neutrophil % 66.6 % (47-70); Platelet Count 467 K/mm3 (150-450); RBC Distribution Width SD 41.6 fl (35.1-43.9); Red Blood Count 4.35 M/mm3 (4.2-5.4); White Blood Count 16.9 K/mm3 (4.4-11.0)
[2022-11-13 06:17] LABS: Anion Gap 6 (5-15); BUN 10 mg/dL (7-18); BUN/Creat Ratio 16.5 RATIO (10-20); Calcium,Total 8.8 mg/dL (8.5-10.1); Chloride 105 mmol/L (98-107); Creatinine, Serum 0.61 mg/dL (0.55-1.02); EST Glomerular Filtration Rate 114 mL/min (>60); Est Glom Filt Rate - Afr Amer 138 mL/min (>60); Estimated Creatinine Clearance 115.64 ml/min; Glucose 158 mg/dL (74-106); Potassium 3.5 mmol/L (3.5-5.1); Sodium Level 139 mmol/L (136-145)
[2022-11-13] MEDS: HYDROmorphone 1 MG/ML Syringe IV (07:42)
[2022-11-13] MEDS: dexAMETHasone 10 MG/ML Vial IV (07:42)
[2022-11-13 08:09] VITALS: BP 126/78; PULSE 78; RESP 16; O2SAT 97
== END 2022-11-13 08:10 | disposition home or self-care (01) ==
PROVIDERS: Emergency Provider Emergency Medicine; PCP Family Medicine; Visit Provider Emergency Medicine
DX: K04.7 Periapical abscess without sinus (principal); F17.210 Nicotine dependence, cigarettes, uncomplicated
CPT/HCPCS: 70491; 80048; 85025; 96365; 96375; 99284; J7040; J7050; Q9967; A4216; J2405

== ENCOUNTER → 2023-03-03 | Outpatient (CLI) | payer MEDICAID, SELFPAY ==
[2023-03-03 15:45] LABS: Absolute Lymphocyte Count 2.97 X10^3/uL (0.83-4.51); Basophil# 0.06 X10^3/uL; Basophil% 0.6 % (0-1); Eosinophil# 0.29 X10^3/uL; Eosinophils% 2.9 % (0-5); Lymphocyte # 2.97 X10^3/ul (0.83-4.51); Lymphocyte % 30.1 % (19-41); Mean Corp Hgb Conc 32.5 g/dL (32-36); Mean Corpuscular Hgb 27.8 pg (27.0-32.0); Mean Corpuscular Volume 85.5 fL (81-99); Mean Platelet Vol. 12.4 fl (6.2-12.0); Monocyte% 5.1 % (0-10); NRBC Flagged by Analyzer 0 % (0-5); Neutrophil % 60.9 % (47-70); Platelet Count 378 K/mm3 (150-450); RBC Distribution Width CV 12.4 % (11.6-14.6); RBC Distribution Width SD 38.4 fl (35.1-43.9); Red Blood Count 4.68 M/mm3 (4.2-5.4); White Blood Count 9.9 K/mm3 (4.4-11.0)
[2023-03-03 15:52] LABS: ALB/GLOB Ratio 0.9 RATIO (0.9-2.4); AST(SGOT) 30 U/L (15-37); Alanine Aminotransfer ALT/SGPT 49 U/L (13-56); Albumin, Serum 3.9 g/dL (3.2-5.0); Alkaline Phosphatase 136 U/L (45-117); Anion Gap 7 (5-15); BUN 15 mg/dL (7-18); BUN/Creat Ratio 16.9 RATIO (10-20); Calcium,Total 9.5 mg/dL (8.5-10.1); Chloride 101 mmol/L (98-107); Cholesterol 303 mg/dL (200); Creatinine, Serum 0.89 mg/dL (0.55-1.02); EST Glomerular Filtration Rate 74 mL/min (>60); Est Glom Filt Rate - Afr Amer 89 mL/min (>60); Globulin 4.2 g/dL (2.2-4.2); Glucose 264 mg/dL (74-106); High Density Lipoprotein 34 mg/dL; Protein, Total 8.1 g/dL (6.4-8.2); Sodium Level 135 mmol/L (136-145); Triglycerides 271 mg/dL; Very Low Density Lipoprotein 54 mg/dL (5-40)
[2023-03-03 16:36] LABS: Microalbumin,Random Urine 32.9 mg/L (NO RANGE EST.); Microalbumin:Creatinine Ratio 26.3 mg/g CRE (<30 mg/g CRE)
== END | disposition home or self-care (01) ==
PROVIDERS: PCP Family Medicine; Referring Provider Nurse Practitioner Family; Visit Provider Nurse Practitioner Family
DX: Z00.00 Encounter for general adult medical examination without abnormal findings (principal); E11.9 Type 2 diabetes mellitus without complications; E78.5 Hyperlipidemia, unspecified
CPT/HCPCS: 36415; 80053; 80061; 82043; 82570; 85025

== ENCOUNTER 2023-05-31 20:42 | Emergency (ER) | payer MEDICAID, SELFPAY ==
[2023-05-31 20:42] VITALS: BP 151/72; PULSE 55; RESP 20; TEMP 36.3; O2SAT 100; BMI 27.2
--- NOTE | 2023-05-31 21:07 | CT_ITS ---
INDICATION: Pain EXAMINATION: CT ABDOMEN AND PELVIS WITHOUT CONTRAST - CT Abdomen And Pelvis W/O Contrast Injection TECHNIQUE: Helically acquired images were obtained of the abdomen and pelvis without oral or IV contrast. A radiation dose optimization technique was used for this scan. IV Contrast dosage and agent: None. Oral contrast: None. COMPARISON: None. FINDINGS: LOWER CHEST: Lung bases are clear. No cardiomegaly or pericardial effusion. LIVER: Homogeneous. No focal mass. GALLBLADDER AND BILIARY TREE: No calcified gallstones. No gallbladder distension or wall edema. No intra- or extrahepatic biliary ductal dilation. PANCREAS: No focal cystic or solid mass. SPLEEN: Normal size without focal cystic or solid mass. ADRENAL GLANDS: No nodules. KIDNEYS AND URETERS:. Irregular 8mm left proximal ureteral stone at the L2-L3 level with mild hydronephrosis. No additional nephrolithiasis. . PERITONEUM: No ascites or free air. No other fluid collection. BOWEL: No acute gastric finding. No small bowel distention or focal wall thickening. Normal appendix. Large proximal and mid colonic stool burden. . LYMPH NODES: No enlarged mesenteric or retroperitoneal lymph nodes. VESSELS: Aortic atherosclerosis without ectasia.. URINARY BLADDER: Unremarkable. REPRODUCTIVE ORGANS: Left ovarian 3.4 cm cyst. Right ovarian 1.4 cm follicle. Intrauterine device in appropriate position anteverted uterus. Heart ABDOMINAL WALL: No discrete abdominal or pelvic wall hernia. BONES: No lytic or blastic abnormality. CT/Abdomen/Pelvis without Cont IMPRESSION: 8 mm irregular proximal left ureteral stone as measured on coronal reformats. Mild associated left nephrolithiasis. Large proximal to mid colonic stool burden. Left ovarian 3.4 cm cyst in right ovary 1.4 cm cyst. Consider ultrasound characterization. Otherwise follow-up ultrasound recommended of the left ovary in 6 or 10 weeks to ensure resolution. Electronically Signed: Ronen Perez MD at 22:13 EDT ,
[2023-05-31 21:20] LABS: Bacteria 0 SEEN /hpf (None Seen); Mucous, Urine 0 SEEN /hpf (<or=2+)
[2023-05-31] MEDS: 0.9% Normal Saline 1,000 ML 1000 ML IV (21:21)
[2023-05-31 21:22] LABS: Absolute Neutrophil Count 6.1 X10^3/uL (2.0-7.7); Basophil# 0.07 X10^3/uL; Basophil% 0.6 % (0-1); Eosinophil# 0.52 X10^3/uL; Eosinophils% 4.4 % (0-5); Hematocrit 37.3 % (37-47); Lymphocyte % 35.8 % (19-41); Mean Corp Hgb Conc 32.2 g/dL (32-36); Mean Corpuscular Hgb 27.8 pg (27.0-32.0); Mean Corpuscular Volume 86.3 fL (81-99); Mean Platelet Vol. 11.4 fl (6.2-12.0); Monocyte# 0.86 X10^3/uL; Monocyte% 7.3 % (0-10); NRBC Flagged by Analyzer 0 % (0-5); Neutrophil # 6.06 X10^3/uL (2.7-7.7); Neutrophil % 51.6 % (47-70); POSITIVE MORPHOLOGY YES; Platelet Count 353 K/mm3 (150-450); RBC Distribution Width CV 13.5 % (11.6-14.6); RBC Distribution Width SD 42.3 fl (35.1-43.9); Red Blood Count 4.32 M/mm3 (4.2-5.4); White Blood Count 11.7 K/mm3 (4.4-11.0)
[2023-05-31] MEDS: Ondansetron 4 MG/2 ML Vial IV (21:22)
[2023-05-31] MEDS: Morphine 4 MG/ML Syringe IV (21:22)
[2023-05-31 21:25] LABS: Differential Indicated SCAN CRITERIA MET
[2023-05-31 21:29] LABS: Color, Urine Yellow (Yellow); Glucose, Dipstick 50 mg/dl (Normal); Ketone-Dipstick 5 mg/dl (Negative); Leukocyte Esterase-Dipstick 100 /ul (Negative); Nitrite-Dipstick Negative (Negative); Occult Blood-Urine 250 /ul (Negative); Protein-Dipstick 30 mg/dl (Negative); Specific Gravity, Urine 1.025 (1.002-1.030); Urine Bilirubin Dipstick Negative (Negative); Urine Clarity Sl. Cloudy (Clear); Urine Urobilinogen 1 mg/dl (Normal)
[2023-05-31 21:35] LABS: Anion Gap 6 (5-15); BUN 9 mg/dL (7-18); BUN/Creat Ratio 13.7 RATIO (10-20); Calcium,Total 9.4 mg/dL (8.5-10.1); Chloride 106 mmol/L (98-107); Creatinine, Serum 0.66 mg/dL (0.55-1.02); EST Glomerular Filtration Rate 104 mL/min (>60); Est Glom Filt Rate - Afr Amer 126 mL/min (>60); Glucose 133 mg/dL (74-106); Potassium 3.5 mmol/L (3.5-5.1); Sodium Level 140 mmol/L (136-145)
[2023-05-31 21:40] LABS: Red Blood Cells-Urine > 100 SEEN /hpf (0-5); Squamous Epithelial Cells - UA 0-5 SEEN /hpf (5-10); White Blood Cells 5-10 SEEN /hpf (0-5)
[2023-05-31 21:41] LABS: Amorphous Sediment 1+ URATE
[2023-05-31 21:42] LABS: Internal QC Validated? YES +Cl - CLEAR BKGD; Pregnancy, Serum, hCG Quali. NEGATIVE Negative
[2023-05-31] MEDS: HYDROmorphone 1 MG/ML Syringe 0.5 MG IV (22:25)
[2023-05-31 22:26] LABS: Differential Comment SCANNED
--- NOTE | 2023-05-31 23:17 | EDS_ITS ---
HPI HPI - GI History of Present Illness Chief Complaint: Abd Pain Informant: patient Abdominal Pain/Flank Pain Onset: Today and Hours (2) Context: Sudden Onset Timing: Continuous Quality: Aching, Burning, Cramping and Sharp Location: LLQ and Left Flank Current Severity: 10/10 Maximum Severity: 10/10 Worsened by: Nothing Relieved by: Nothing Nausea/Vomiting/Emesis GI Symptom: Positive for Nausea and Vomiting Quality: Positive for Nonbilious; Negative for Blood streaks, Coffee ground or Hematemesis Diarrhea/Melena/Hematochezia GI Symptom: Negative for Diarrhea, Melena or Hematochezia Associated Symptoms Associated Symptoms: Negative for Dysuria, Frequency or Hematuria LMP: Yesterday Narrative Narrative: Patient presents with abdominal pain that has been getting worse over the past 2 hours. Patient states it began rather suddenly. Patient states it has been constant. Patient describes the pain as cramping, aching, and sharp. Patient states the pain is over the left lower quadrant and left flank area. Patient admits to some nausea and vomiting. Patient denies any hematemesis or coffee- ground emesis. Patient denies any diarrhea, melena, or hematochezia. Patient denies any dysuria, frequency, or hematuria. Patient states she finished her last menstrual period yesterday. [facility] Medical History Acute bronchitis, unspecified Diabetes Encounter for screening for COVID-19 Home Medications escitalopram oxalate 10 mg tablet 10 mg PO DAILY 30 days ##30 11/02/17 [History Last Taken Unknown] levomefolate 15 mg-algal oil 90.314 mg capsule 30 mg PO DAILY 30 days ##30 11/02/17 [History Last Taken Unknown] buspirone 15 mg tablet 15 mg PO DAILY 05/31/23 [History Last Taken Unknown] metformin 500 mg tablet 500 mg PO BID 05/31/23 [History Last Taken Unknown] oxycodone-acetaminophen 5 mg-325 mg tablet 1 tab PO Q4H PRN pain 5 days #20 TABLETS 05/31/23 [Rx Last Taken Unknown] Allergy/AdvReac Type Severity Reaction Status Date / Time shellfish derived AdvReac Vomiting Verified 05/31/23 20:46 Surgical History H/O tubal ligation Hx of tonsillectomy Social History Smoking Status: Current some day smoker tobacco type: cigarettes alcohol intake: never ROS ROS ED Constitutional Constitutional ED: Reports chills; Denies fever(s) Eyes Eyes: Denies blurry vision or change in vision ENT ENT ED: Denies rhinorrhea or sore throat Cardiovascular Cardiovascular: Denies chest pain or palpitations Respiratory/Chest Respiratory/Chest: Denies cough or dyspnea Gastrointestinal Gastrointestinal: Reports abdominal pain, nausea and vomiting Genitourinary Genitourinary ED: Denies dysuria or hematuria Musculoskeletal Musculoskeletal: Denies back pain or neck pain Integumentary Denies abscess or rash Neurologic Neurologic: Denies headache(s) or weakness Allergic/Immunologic Allergic/Immunologic ED: Denies mouth swelling or urticaria EXAM Physical Exam Const Vital Signs: 05/31/23 20:42 Temperature 97.4 F L Temperature Source Temporal Pulse Rate 55 L Respiratory Rate 20 H Blood Pressure 151/72 H Blood Pressure Mean 98 Pulse Ox 100 Oxygen Delivery Method Room Air Positive well nourished and well developed General Appearance ED: well developed HEENT Reports moist mucous membranes Neck supple and no JVD Resp normal respiratory effort and clear to auscultation bilaterally Cardio regular rate and regular rhythm GI normal to inspection, nondistended, normoactive bowel sounds Palpation: soft and tender LLQ (Mild); Negative for guarding or rebound tenderness present Back/Spine General Back: CVA tenderness left Extremity normal to inspection General Extremety ED: Negative for edema or tenderness General Extremity: Negative for edema Neuro oriented x3, CN's II-XII intact bilaterally and no sensory deficits noted Sensorium / Orientation: alert Motor Exam: strength 5/5 throughout Psych mental status grossly normal Skin no rashes or lesions noted MDM MDM MDM Narrative Medical decision making narrative: Differential diagnosis includes ureteral calculus, pyelonephritis, diverticulitis, colitis, bowel obstruction, and perforation. CBC will be o btained to assess for leukocytosis and anemia. Basic metabolic profile will be obtained to assess for electrolyte abnormality and renal function. Serum hCG will be obtained to assess for . Urinalysis will be obtained to assess for urinary tract infection and hematuria. CT scan of the abdomen pelvis will be obtained to assess for ureteral calculus, diverticulitis, bowel obstruction, and perforation. Lab Data Attestation: I reviewed the patient's lab results. Lab results narrative: CBC was reviewed. There is a mild leukocytosis of 11.7. The remainder is within normal limits. Basic metabolic profile was reviewed and was within normal limits. Serum hCG was reviewed and was negative. Urinalysis was reviewed. Occult blood was 250. There were greater than 100 red blood cells. Leukocyte esterase was 100. There were 5-10 white blood cells. Labs: Laboratory Results - last 24 hr 05/31/23 05/31/23 21:14 21:15 WBC 11.7 H RBC 4.32 Hgb 12.0 Hct 37.3 MCV 86.3 MCH 27.8 MCHC 32.2 RDW Std Deviation 42.3 RDW Coeff of Nona 13.5 Plt Count 353 MPV 11.4 Immature Gran % (Auto) 0.300 Neut % (Auto) 51.6 Lymph % (Auto) 35.8 [place] % (Auto) 7.3 Eos % (Auto) 4.4 Baso % (Auto) 0.6 Absolute Neuts (auto) 6.1 Absolute Lymphs (auto) 4.20 Nucleated RBC % 0 Differential Comment SCANNED Sodium 140 Potassium 3.5 Chloride 106 Carbon Dioxide 28.0 Anion Gap 6 BUN 9 Creatinine 0.66 Estim Creat Clear Calc 98.90 Est GFR (MDRD) Af Amer 126 Est GFR (MDRD) Non-Af 104 BUN/Creatinine Ratio 13.7 Glucose 133 H Calcium 9.4 Serum , Qual NEGATIVE Urine Color Yellow Urine Clarity Sl. Cloudy Urine pH 5.0 Ur Specific [place] 1.025 Urine Protein 30 H Urine Glucose (UA) 50 H Urine Ketones 5 H Urine Occult Blood 250 H Urine Nitrite Negative Urine Bilirubin Negative Urine Urobilinogen 1 H Ur Leukocyte Esterase 100 H Urine RBC > 100 SEEN Urine WBC 5-10 SEEN Ur Squamous Epith Cells 0-5 SEEN Amorphous Sediment 1+ URATE Urine Bacteria 0 SEEN Urine Mucus 0 SEEN Radiography Diagnostic Testing: Clinical Impression(s) from Imaging Studies Abdomen/Pelvis CT 05/31/23 21:07 IMPRESSION: 8 mm irregular proximal left ureteral stone as measured on coronal reformats. Mild associated left nephrolithiasis. Large proximal to mid colonic stool burden. Left ovarian 3.4 cm cyst in right ovary 1.4 cm cyst. Consider ultrasound characterization. Otherwise follow-up ultrasound recommended of the left ovary in 6 or 10 weeks to ensure resolution. Electronically Signed: Ronen Perez MD at 22:13 EDT , CT scan of the abdomen and pelvis was obtained. There is an 8 mm irregular proximal left ureteral calculus. There is mild hydronephrosis. There is a 3.4 cm cyst on the left ovary and a 1.4 cm cyst on the right ovary. This was interpreted by the radiologist and was also independently reviewed by myself. Treatment and Re-Evaluation :: Patient was given a dose of morphine and Zofran initially. Patient was given IV fluids. Patient was having persistent pain. Patient was given a dose of Dilaudid. Patient was advised of her findings. Patient is resting comfortably on reexamination. Patient feels better and wants to go home. Patient was instructed to drink plenty of fluids. Patient was given a prescription for Percocet for pain. Patient was given a referral for urology. Patient was i nstructed to follow-up in 3 to 5 days. Patient was instructed return if worse in any way. Patient understood and was agreeable with the plan. All questions were answered. Discharge Plan Triage Chief Complaint: Abd Pain ED Provider: Tahir Gonzales Dx/Rx/DC Orders Clinical Impression: Calculus of proximal left ureter Instructions: ED Kidney Stone w/ Colic Prescriptions: New oxycodone-acetaminophen [oxycodone-acetaminophen] 5-325 mg tablet 1 tab PO Q4H PRN (Reason: pain) 5 Days Qty: 20 0RF No Action escitalopram oxalate 10 mg tablet 10 mg PO DAILY 30 Days Qty: 30 Patient Comments: Take 1 tab by mouth once daily levomefolate-algal oil 15-90.314 mg capsule 30 mg PO DAILY 30 Days Qty: 30 Patient Comments: Take 1 tab by mouth once daily buspirone 15 mg tablet 15 mg PO DAILY Patient Comments: TAKE 1 TABLET BY MOUTH EVERY DAY metformin 500 mg tablet 500 mg PO BID Patient Comments: TAKE 1 TABLET BY MOUTH TWICE DAILY WITH FOOD Primary Care Provider: Pauly Trujillo Referrals: Ofe Arambula MD [Med Staff - Active Staff] - As soon as possible Pauly Trujillo DO [Primary Care Provider] - 3-5 Days Disposition Disposition: Home, Self Care
== END 2023-06-01 00:22 | disposition home or self-care (01) ==
PROVIDERS: Emergency Provider Emergency Medicine; PCP Family Medicine; Visit Provider Emergency Medicine
DX: N13.2 Hydronephrosis with renal and ureteral calculous obstruction (principal); E11.9 Type 2 diabetes mellitus without complications; Z79.84 Long term (current) use of oral hypoglycemic drugs; F17.210 Nicotine dependence, cigarettes, uncomplicated
CPT/HCPCS: 74176; 80048; 81001; 84703; 85025; 96361; 96374; 96375; 99283; J7030; A4216; J2405

== ENCOUNTER 2023-06-04 12:08 | Day surgery (SDC) | payer MEDICAID, SELFPAY ==
--- NOTE | 2023-06-04 10:56 | DCINST_ITS ---
Discharge Instructions Diet Discharge Diet: No restrictions Activity Discharge Activity: Return to Normal Activity Dressing / Incision Call your doctor if you observe: Fever of 101 or Higher, Inability to urinate and Inability to have a bowel movement Follow Up Care Please Follow Up With: Ofe Arambula MD When: The office will call the patient to make follow-up arrangements. Test Results: Test results from this visit will be discussed in further detail at your follow- up appointment, if applicable. Discharge Plan Admission Attending Provider: Ofe Arambula Primary Care Provider: Pauly Trujillo Discharge Orders/Prescriptions Prescriptions: New oxycodone-acetaminophen [Percocet] 5-325 mg tablet 1 tab PO Q8H PRN (Reason: pain) 3 Days Qty: 10 0RF cephalexin [cephalexin] 500 mg capsule 500 mg PO Q12 3 Days Qty: 6 0RF phenazopyridine [Pyridium] 200 mg tablet 200 mg PO TID PRN PRN (Reason: Bladder Spasms) 7 Days Qty: 30 0RF Continued escitalopram oxalate 10 mg tablet 10 mg PO DAILY 30 Days Qty: 30 Patient Comments: Take 1 tab by mouth once daily levomefolate-algal oil 15-90.314 mg capsule 30 mg PO DAILY 30 Days Qty: 30 Patient Comments: Take 1 tab by mouth once daily buspirone 15 mg tablet 15 mg PO DAILY Patient Comments: TAKE 1 TABLET BY MOUTH EVERY DAY metformin 500 mg tablet 500 mg PO BID Patient Comments: TAKE 1 TABLET BY MOUTH TWICE DAILY WITH FOOD Referrals / Follow Up: Pauly Trujillo DO [Primary Care Provider] - Disposition Disposition (needs filled in before D/C Order can be placed): Home, Self Care
--- NOTE | 2023-06-04 10:57 | OP.PCM_ITS ---
Report of Operation Date of Procedure: 06/04/23 Pre-Operative Diagnosis: Left ureteral calculus Post-Operative Diagnosis: Same Surgery/Procedure Performed:: Cystoscopy, left ureteral stent insertion, left ureteral extracorporal shockwave lithotripsy Surgeon: Ofe Arambula Type of Anesthesia: General Specimen's removed: None Description of Procedure: The patient is a 42-year-old female who presented to the office with an obstructing left ureteral calculus. She now presents for surgical intervention. Informed consent was obtained. The patient was taken to the operating room and placed on the operating room table. Anesthesia monitored the head, neck, airway, IV access and vital signs throughout the case. Once anesthesia was appropriately administered, the patient was placed into dorsolithotomy position was prepped and draped in usual sterile fashion. The cystoscope was inserted through the urethra under direct visualization into the urinary bladder. The bladder mucosa was visualized in its entirety finding no evidence of mass, erythema, ulceration or foreign body. The left ureteral orifice was gently intubated with a 0.035 Glidewire which was advanced beyond the stone and seen in the renal pelvis on fluoroscopic evaluation. At this time a 4.5 [place] 26 cm JJ stent was placed over the wire with good positioning in the renal pelvis as well as the urinary bladder. The cystoscope was then removed and the patient was then repositioned on the lithotripsy table. The stone was identified and 4000 shocks were applied to the stone with good fragmentation. The patient was then awakened and taken to the recovery room in good condition. There were no complications during this procedure. Grafts/Implants Used: 4.5 x 26 cm JJ stent Complications None Admit VTE Documentation VTE Present on Admission: Yes VTE Mechan Device Prophylaxis: SCD's VTE Pharm Prophylaxis ordered?: No Reason prophylaxis not ordered:: Treatment Not Indicated
[2023-06-04] MEDS: Lactated Ringers 1,000 ML 15 ML IV (12:37)
[2023-06-04 12:38] VITALS: BP 103/78; PULSE 88; RESP 18; TEMP 36.8; O2SAT 99; BMI 27.0
[2023-06-04] MEDS: Cefazolin 2 GM in 0.9% Normal Saline 100 ML IV (13:30)
[2023-06-04 13:35] LABS: Bedside Glucose 118 mg/dL (74-106)
[2023-06-04 14:46] VITALS: BP 103/78; BP 140/99; PULSE 77; RESP 18; TEMP 36.1; O2SAT 95
[2023-06-04 15:00] VITALS: BP 103/78; BP 135/85; PULSE 73; RESP 16; O2SAT 96
[2023-06-04 15:10] LABS: Bedside Glucose 103 mg/dL (74-106)
[2023-06-04 15:15] VITALS: BP 103/78; BP 126/75; PULSE 70; RESP 16; O2SAT 97
[2023-06-04 15:22] VITALS: BP 103/78; BP 130/82; PULSE 70; RESP 16; TEMP 36.6; O2SAT 97
[2023-06-04] MEDS: Oxycodone/Apap 5/325 Tablet PO (15:55)
[2023-06-04 16:29] VITALS: BP 103/78; BP 131/86; PULSE 80; RESP 16; TEMP 36.2; O2SAT 99
== END 2023-06-04 16:33 | disposition home or self-care (01) ==
LOC: SDC 12:09 → AC 12:10
PROVIDERS: PCP Family Medicine; Referring Provider Urology; Visit Provider Urology
PROC: (CPT 50590; principal; 2023-06-04 13:35)
DX: N20.1 Calculus of ureter (principal); E11.9 Type 2 diabetes mellitus without complications; F41.9 Anxiety disorder, unspecified; F32.A Depression, unspecified; F17.200 Nicotine dependence, unspecified, uncomplicated; N39.3 Stress incontinence (female) (male)
CPT/HCPCS: 50590; 52332; 00873; 82962; J7120; J2405

== ENCOUNTER → 2023-06-29 | Outpatient (CLI) | payer MEDICAID, SELFPAY ==
--- NOTE | 2023-06-29 09:30 | RAD_ITS ---
STUDY: X-RAY - ABDOMEN/PELVIS REASON FOR EXAM: Female, 43 years old. KUB TECHNIQUE: Two AP supine views of the abdomen and pelvis. COMPARISON: None. FINDINGS: Normal visualized lung bases. There is moderate to abundant fecal debris within the colon which may indicate constipation. There is no demonstrated free abdominal air. There is a left-sided ureteral stent in place. There is an IUD with unchanged calcification of clip in the posterior pelvis. The remainder of the visualized liver, spleen and kidneys are grossly normal in size and morphology. Normal soft tissue structures. Normal visualized osseous structures. RAD/Abdomen Single View IMPRESSION: Postoperative changes as described. Possible constipation. No bowel obstruction or free air. Electronically Signed: Anneliese Moore MD at 17:39 EDT ,
[2023-06-29 15:18] LABS: Absolute Lymphocyte Count 2.34 X10^3/uL (0.83-4.51); Absolute Neutrophil Count 5.4 X10^3/uL (2.0-7.7); Basophil# 0.06 X10^3/uL; Basophil% 0.7 % (0-1); Eosinophil# 0.29 X10^3/uL; Eosinophils% 3.4 % (0-5); Hematocrit 36.7 % (37-47); Hemoglobin 11.6 g/dL (12.0-15.0); Lymphocyte # 2.34 X10^3/ul (0.83-4.51); Lymphocyte % 27.5 % (19-41); Mean Corp Hgb Conc 31.6 g/dL (32-36); Mean Corpuscular Hgb 27.6 pg (27.0-32.0); Mean Corpuscular Volume 87.2 fL (81-99); Monocyte# 0.43 X10^3/uL; Monocyte% 5.1 % (0-10); NRBC Flagged by Analyzer 0 % (0-5); Neutrophil # 5.37 X10^3/uL (2.7-7.7); Neutrophil % 63.2 % (47-70); Platelet Count 352 K/mm3 (150-450); RBC Distribution Width CV 13.1 % (11.6-14.6); RBC Distribution Width SD 41.4 fl (35.1-43.9); Red Blood Count 4.21 M/mm3 (4.2-5.4); White Blood Count 8.5 K/mm3 (4.4-11.0)
[2023-06-29 15:46] LABS: AST(SGOT) 14 U/L (15-37); Alanine Aminotransfer ALT/SGPT 18 U/L (13-56); Albumin, Serum 3.6 g/dL (3.2-5.0); Alkaline Phosphatase 100 U/L (45-117); Anion Gap 7 (5-15); BUN 12 mg/dL (7-18); BUN/Creat Ratio 16.8 RATIO (10-20); Calcium,Total 9.8 mg/dL (8.5-10.1); Chloride 104 mmol/L (98-107); Creatinine, Serum 0.71 mg/dL (0.55-1.02); EST Glomerular Filtration Rate 95 mL/min (>60); Est Glom Filt Rate - Afr Amer 114 mL/min (>60); Globulin 3.5 g/dL (2.2-4.2); Glucose 112 mg/dL (74-106); Potassium 4.7 mmol/L (3.5-5.1); Protein, Total 7.1 g/dL (6.4-8.2); Sodium Level 137 mmol/L (136-145); Thyroid Stim Hormone (TSH) 1.57 uIU/mL (0.358-3.74); Uric Acid 3.4 mg/dL (2.6-6.0)
[2023-06-29 16:05] LABS: Hemoglobin A1c 6.8 % (3.8-5.6)
== END | disposition home or self-care (01) ==
LOC: MTRAD 09:27
PROVIDERS: PCP Family Medicine; Referring Provider Urology; Visit Provider Urology
DX: E11.9 Type 2 diabetes mellitus without complications (principal); E79.0 Hyperuricemia without signs of inflammatory arthritis and tophaceous disease; Z51.81 Encounter for therapeutic drug level monitoring
CPT/HCPCS: 36415; 74018; 80053; 83036; 84443; 84550; 85025

== ENCOUNTER → 2024-06-27 | Outpatient (CLI) | payer MEDICAID, SELFPAY ==
[2024-06-27 17:55] LABS: Absolute Lymphocyte Count 3.04 X10^3/uL (0.83-4.51); Absolute Neutrophil Count 5.9 X10^3/uL (2.0-7.7); Basophil# 0.07 X10^3/uL; Basophil% 0.7 % (0-1); Eosinophil# 0.22 X10^3/uL; Eosinophils% 2.2 % (0-5); Hematocrit 39.4 % (37-47); Hemoglobin 12.4 g/dL (12.0-15.0); Lymphocyte # 3.04 X10^3/ul (0.83-4.51); Lymphocyte % 30.8 % (19-41); Mean Corp Hgb Conc 31.5 g/dL (32-36); Mean Corpuscular Hgb 27.1 pg (27.0-32.0); Mean Corpuscular Volume 86.2 fL (81-99); Mean Platelet Vol. 11.7 fl (6.2-12.0); Monocyte% 6.1 % (0-10); NRBC Flagged by Analyzer 0 % (0-5); Neutrophil # 5.93 X10^3/uL (2.7-7.7); Platelet Count 355 K/mm3 (150-450); RBC Distribution Width CV 13.2 % (11.6-14.6); RBC Distribution Width SD 40.9 fl (35.1-43.9); Red Blood Count 4.57 M/mm3 (4.2-5.4); White Blood Count 9.9 K/mm3 (4.4-11.0)
[2024-06-27 18:30] LABS: Hemoglobin A1c 5.9 % (3.8-5.6)
[2024-06-27 18:43] LABS: ALB/GLOB Ratio 0.9 RATIO (0.9-2.4); AST(SGOT) 14 U/L (15-37); Alanine Aminotransfer ALT/SGPT 20 U/L (13-56); Albumin, Serum 3.6 g/dL (3.2-5.0); Alkaline Phosphatase 93 U/L (45-117); Anion Gap 7 (5-15); BUN 8 mg/dL (7-18); BUN/Creat Ratio 13.5 RATIO (10-20); Calcium,Total 9.9 mg/dL (8.5-10.1); Chloride 104 mmol/L (98-107); Cholesterol 237 mg/dL (200); Creatinine, Serum 0.59 mg/dL (0.55-1.02); EST Glomerular Filtration Rate 116 mL/min (>60); Est Glom Filt Rate - Afr Amer 141 mL/min (>60); Free T3 2.6 pg/mL (2.18-3.98); Globulin 3.8 g/dL (2.2-4.2); Glucose 72 mg/dL (74-106); High Density Lipoprotein 39 mg/dL; Potassium 3.8 mmol/L (3.5-5.1); Protein, Total 7.4 g/dL (6.4-8.2); Sodium Level 136 mmol/L (136-145); T4 Free Direct 0.89 ng/dL (0.76-1.46); Triglycerides 195 mg/dL; Very Low Density Lipoprotein 39 mg/dL (5-40)
[2024-06-27 18:49] LABS: Microalbumin,Random Urine 13.6 mg/L (NO RANGE EST.); Microalbumin:Creatinine Ratio 9.3 mg/g CRE (<30 mg/g CRE)
[2024-06-27 19:49] LABS: Vitamin B12 255 pg/mL (211-911)
[2024-06-29 17:07] LABS: Thyroglobulin Antibody < 1.0 IU/mL (0.0-0.9); Thyroid Peroxidase AB < 9 IU/mL (0-34)
== END | disposition home or self-care (01) ==
PROVIDERS: PCP Family Medicine; Referring Provider Family Medicine; Visit Provider Family Medicine
DX: Z51.81 Encounter for therapeutic drug level monitoring (principal); E11.9 Type 2 diabetes mellitus without complications; E78.5 Hyperlipidemia, unspecified; D64.9 Anemia, unspecified; E03.9 Hypothyroidism, unspecified
CPT/HCPCS: 36415; 80053; 80061; 82043; 82570; 82607; 83036; 84439; 84443; 84481; 85025; 86376; 86800

== ENCOUNTER → 2024-07-11 | Outpatient (CLI) | payer MEDICAID, SELFPAY ==
--- NOTE | 2024-07-11 14:04 | RAD_ITS ---
EXAM: XR ABDOMEN, 1 VIEW CLINICAL INDICATION: FLANK PAIN TECHNIQUE: Frontal supine view of the abdomen/pelvis. COMPARISON: 06/29/[address] abdomen and pelvis, 05/31/2023. FINDINGS: GASTROINTESTINAL TRACT: Moderate volume colonic stool. Non-obstructive. No bowel or stomach distention. ORGANS: Normal as visualized. No organomegaly. No abnormal calcifications. BONES/JOINTS: No discrete pathologic calcification to suggest urolithiasis is identified. SOFT TISSUES: A solitary tubal ligation clip as visualized. TUBES, LINES AND DEVICES: Ureteral stent has been removed. OTHER FINDINGS: IUD present. RAD/Abdomen Single View IMPRESSION: 1. Ureteral stent has been removed. 2. No discrete pathologic calcification to suggest urolithiasis is identified. 3. Moderate volume colonic stool. No bowel obstruction. Electronically Signed: Killian Yuan DO at 21:26 EDT ,
== END | disposition home or self-care (01) ==
PROVIDERS: PCP Family Medicine; Referring Provider Family Medicine; Visit Provider Family Medicine
DX: N20.0 Calculus of kidney (principal)
CPT/HCPCS: 74018

== ENCOUNTER → 2025-07-17 | Outpatient (CLI) | payer MEDICAID, SELFPAY ==
--- OUTSIDE RECORDS SUMMARY | 2024-11-28 12:10 | XMS RPT_ITS ---
Author Name Auto Generated Organization OHIP Care Team Providers Care Manager Discovery Name Role Phone DREWMARY Medina Attending Unavailable MELVA RDZ Primary Care Unavailable DREWMRAY Medina Referring Unavailable MELVA RDZ Primary Care Unavailable PROBLEMS DATE TYPE CONDITION / CODE ATTENDING STATUS [facility] 11/28/2024 Active Encounter for gy necological examination (general) (routine) without abnormal findings / Z01.419(ICD-10) NA Active [facility] 11/28/2024 Active Encounter for sc reening mammogram for breast cancer / Z12.31(ICD-10) NA Active [facility] PROCEDURES No Procedure Records Found RESULTS HOLA SCREENING W CAROLINE Observed: 11:16 AM Status: F Source: [facility] * * *Final Report* * * DATE OF EXAM: Nov 28 2024 11:16AM [facility] 0582 - HOLA SCREENING W CAROLINE / PROCEDURE REASON: multiple diagnoses * * * * Physician Interpretation * * * * RESULT: [facility] [address] [place] [address] #[id number] - HOLA SCREENING W CAROLINE HISTORY: 44 year-old patient seen for screening and is asymptomatic in both breasts. Patient states no personal history of breast cancer. Patient states no personal history of ovarian cancer. COMPARISON STUDIES: The present examination has been compared to a prior imaging study dated 07/14/2018 (mammogram). MAMMOGRAM TECHNIQUE: The study was acquired using full field digital technology and interpreted from soft copy. Digital Breast Tomosynthesis (DBT) images were obtained and used to assist in the interpretation of this examination. MAMMOGRAM FINDINGS: The breasts are heterogeneously dense, which may obscure small masses. No suspicious masses, calcifications or other abnormalities are seen in either breast. There are no significant interval changes. IMPRESSION: There is no mammographic evidence of malignancy in either breast. Routine screening mammogram is recommended. Annual mammogram will be due in 1 year. BI-RADS Category 1: Negative RISK: Based on the Tyrer-Cuzick (TC) risk assessment model, this patient has a 7.2% lifetime risk of developing breast cancer, meaning they are at average risk for developing breast cancer. However, this is only an estimate based on available history provided on the patient's questionnaire. We encourage all patients to talk with their providers about these results, further recommendations for managing breast health, and appropriate supplemental screening options if the patient has dense breast tissue. Interpreting Radiologist: Joseph Frost M.D. Electronically signed on: 12/01/2024 Associate Professor Physician: CHRISTIANO Transcribe Date/Time: Nov 28 2024 11:07A Dictated by: JOSEPH FROST MD This examination was interpreted and the report reviewed and electronically signed by: JOSEPH FROST MD on Dec 01 2024 12:56PM EST [id number] PROGRESS Observed: 11/28/2024 11:10 AM Status: COMPLETED Source: [facility] ID: [id number] Author: JONNATHAN REN Mammo Tech Service: ? Author Type: Image Editor Type: Progress Notes Filed: 11/28/2024 13:21 Note Text: Radiology Service Progress Note PATIENT NAME: Cody Dunne DATE OF SERVICE: November 28, 2024 TIME: 1:21 PM PATIENT IDENTITY VERIFICATION COMPLETED USING TWO (2) IDENTIFIERS: Name and Date of confirmed by patient verbally. FALL SCREENING: Has the patient had 2 falls in the last year or 1 fall with injury or currently using an Ambulatory Assistive Device (Walker, Cane, Wheelchair, Crutches, etc.)? No PATIENT GENDER DATA: Assigned female at . status: : No status: NO. PATIENT RELEVANT IMPLANT DATA REVIEWED: Not Applicable PATIENT PRESENTS WITH AN IMPLANTABLE OR ATTACHED MANAGER SAP: No RADIOLOGY DEPARTMENT: Mammography PERIPHERAL IV DATA: Not applicable SIGNED BY: Janeen Thurston November 28, 2024 1:21 PM PAP TEST Collected: 11:10 AM Status: F Source: [facility] Order Comment: Specimen Type : FLUID SPECIMEN Ordering Facility: [facility] Address: [address] [place] [address] TYPE CODE TESTS RESULT OUT OF RANGE REFERENCE UNITS PATHOLOGY [id number] CASE REPORT Result Comment: Gynecologic Cytology Report Case: [id number] Authorizing Provider: Mary Russell APRN.MOTEL MAID Collected: 08/22/2024 11:10 AM Ordering Location: OB/Gynecology Received: 08/22/2024 11:22 AM First Screen: Huma Hunt CT, ASCP Specimen: Pap Test, ThinPrep, Cervix PATHOLOGY [id number] ADEQUACY Result Comment: Satisfactory for interpretation. No endocervical component PATHOLOGY [id number] INTERPRETATIO N, CYTOLOGY, [facility] Result Comment: Negative for intraepithelial lesion or malignancy. OLOGY [id number] CLINICAL HISTORY, CYTOLOGY, [facility] Routine Exam PATHOLOGY [id number] LMP 08/07/2024 PATHOLOGY PAPDC PAP DISCLAIMER COMMENT The Pap Smear is a screening test for cervical cancer. False negative results occur with all screening tests, emphasizing the need for rescreening at recommended intervals, and clinical correlation. PATHOLOGY PAPIC PAP RN SCHOOL COMMENT This specimen has been analyzed by the ThinPrep Imaging System, an automated imaging and review system, which assists the laboratory in evaluating cells on ThinPrep Pap tests. Following automated imaging, selected becker from every slide are reviewed by a cytotechnologi st. PATHOLOGY [facility] FINAL PERFORMING LAB Result Comment: Technical co mponent, medical office clerk screening performed at [facility], [address] [place], [place] [id number] CLIA# [id number] Diagnostic interpretation performed at [facility], [address] [place] [address] CLIA# [id number] Transition Of Care Specialist: Joshua Can M.D. Performed By: #### [id number] # ### [facility] CLIA [id number] [address] [place] [address] [place] [address] [place] HIGH RISK HUMAN PAPILLOMA VIRUS (HPV), PCR FOR DETECTION AND GENOTYPING Collected: 08/22/2024 11:10 AM Status: F Source: [facility] Order Comment: Specimen Type : FLUID SPECIMEN Ordering Facility: [facility] Address: [address] [place] [address] TYPE CODE TESTS RESULT OUT OF RANGE REFERENCE UNITS LAB 35673-4([facility]) HPV16 Ag Spec Ql Not detected Not detected LAB 05387-1(LOINC) HPV18 Ag Spec Ql Not detected Not detected LAB 98102-1([facility]) HPV HR 12 DNA Cvx Ql MICHAEL+probe Not detected Not detected Result Comment: High Risk HP V Other Type includes HPV types 31, 33, 35, 39, 45, 51, 52, 56, 58, 59, 66 and 68. Performed By: #### HPVHRT ## ## [facility] CLIA [id number] [address] [place] [address] [place] [address] [place] CNOV Observed: 08/22/2024 10:30 AM Status: COMPLETED Source: [facility] Office Visit (OBGYWM) CODY DUNNE ([id number]) 1980 F Date Time Provider Department 08/22/24 10:30 AM MARY RUSSELL OBGYWM During your visit today, we recorded the following information about you: Blood pressure Weight Height Last Period 124 71.6 kg 1.646 m 08/07/24 Mary Russell APRN.MOTEL MAID 08/22/2024 11:09 AM Signed Patient declined manager specialtyNatty Farias is a 44 year old who presents for an annual gynecologic exam without complaints. Menses: cycles irregular menses past two years- Mirena IUD. LMP 08/07/2024 Contraception: tubal sterilization, Mirena HPV vaccine: N/A Last Pap: Pt reported as unknown, has not seen [facility] provider. HPV: unknown History of abnormal pap: No Pt reported Last mammogram: 2018 diagnostic (LT) breast pain Sexually active: Yes Pain with intercourse: No Postcoital bleeding: No Hot flashes: No Night sweats: No OB History T0 L1 SAB0 IAB0 Ectopic0 Multiple0 Live Births0 Supplier Quality Engineer History LMP: LMP Unknown, IUD Age at Menarche: Age at First : Age at Menopause: Supplier Quality Engineer History Comments: Sexual Activity: Not Asked; No partner data on record Contraception: I.U.D. PAST MEDICAL HISTORY Diagnosis Date ADD (attention deficit disorder) Anxiety Depression Localized superficial swelling, mass, or lump 03/31/07 BACK NEGATIVE MEDICAL HISTORY PAST SURGICAL HISTORY Procedure Laterality Date EXCISION TUMOR SOFT TISSUE BACK/FLANK SUBQ <3CM 03/31/2007 7 cm lipoma LAPAROSCOPIC TUBAL LIGATION/RING/CLIP 03/12/2017 LAPAROSCOPIC LIGATION TUBAL FILSHIE CLIPS TONSILLECTOMY HX 2008 FAMILY HISTORY Problem Relation Age of Onset Cervical Cancer Mother Diabetes Mother SOCIAL HISTORY Social History Tobacco Use Smoking status: Former Current packs/day: 0.25 Average packs/day: 0.3 packs/day for 36.8 years (9.2 ttl pk-yrs) Types: Cigarettes Start date: 10/19/1987 Smokeless tobacco: Never Substance Use Topics Alcohol use: Yes Comment: 3-4/month Drug use: No REVIEW OF SYSTEMS Abdomen: No abdominal pain, nausea, vomiting, diarrhea, or constipation. No bloating, early satiety, indigestion, or increased flatulence. Bladder: No dysuria, gross hematuria, urinary frequency, urinary urgency, or incontinence. Breast: No breast lumps, nipple d/c, overlying skin changes, redness or skin retraction. Allergies and current medication updated:Yes SENSITIVE EXAM: The sensitive examination was discussed with the Patient or Patient's Authorized Jig Grinder. As applicable, any other physician, advance practice provider, medical student, or other health professional student that will be observing or involved in the sensitive examination for educational or training purposes was discussed with the Patient or Authorized Jig Grinder. The Patient or Authorized Jig Grinder has agreed to proceed with the sensitive examination. (Sensitive examination includes inspection and/or palpation of the breasts, pelvis, prostate and anorectal regions). EXAM: There were no vitals taken for this visit. GENERAL: pleasant, female in no apparent distress HEENT: Normocephalic, atraumatic, mucus membranes moist, and no lesions NECK: Supple, full range of motion, no adenopathy, and thyroid normal DERMATOLOGY: Normal, without lesions, non-icteric, and non-hirsute BREAST: soft, non-tender, symmetric, no dominant mass, normal nipple-areolar complex, no lymphadenopathy, and no nipple discharge CHEST: Normal inspiratory effort ABDOMEN: soft, non-tender, and no masses PELVIC: external genitalia normal, normal Bartholin's glands, urethra, [place]'s glands, no vulvar lesions, no cervical lesions, physiologic discharge present, normal appearing perineal body and perianal region, IUD strings visible BIMANUAL: uterus normal size, shape and consistency, no adnexal masses, and non-tender RECTOVAGINAL: deferred. NEURO: alert and oriented x3,exam grossly non-focal EXTREMITIES: normal ASSESSMENT/PLAN: 1) Health maintenance: Pap done with HPV. Mammogram ordered. Nutrition, exercise and routine health maintenance exams reviewed. Calcium/Vitamin D supplementation information provided. Colon cancer screening: Cologuard 2023 negative 2) Contraception: tubal sterilization. Contraceptive options reviewed and information provided. 3) STD screening: Declined STD check. 4) Follow up one year or sooner as needed 5) Mirena removal and reinsertion ordered Mary Russell APRN.MOTEL MAID Allergies As of Date: 08/22/2024 Noted Allergy Reaction SHELLFISH DERIVED 09/30/2021 11 - Vomiting Date Reviewed: 08/22/2024 Reviewed by: Mary Russell APRN.MOTEL MAID - Fully Assessed Reason for Visit: Well Woman [1463] Primary Visit Diagnosis:Encounter for gynecological examination (general) (routine) without abnormal findings [Z01.419] Other Visit Diagnoses:Screening for cervical cancer [Z12.4] Encounter for screening for human papillomavirus (HPV) [Z11.51] Encounter for screening mammogram for breast cancer [Z12.31] Encounter for IUD removal and reinsertion [Z30.433] Order(s):PAP TEST [[id number]] Order #: [id number] HOLA SCREENING W CAROLINE [[id number]] Order #: [id number] FUTURE REMOVE INTRAUTERINE DEVICE [[id number]] Order #: [id number] INSERT INTRAUTERINE DEVICE [[id number]] Order #: [id number] Prescriptions as of 08/22/2024 - TRULICITY 3 mg/0.5 mL pen injector INJECT THE CONTENTS OF 1 PEN UNDER THE SKIN ONCE WEEKLY - busPIRone (BUSPAR) 15 mg tablet 15 mg once daily. - amphetamine-dextroamphetamine XR (ADDERALL XR) 10 mg 24 hr capsule once daily. - DEPLIN, ALGAL OIL, 15-90.314 mg cap once daily. - LEXAPRO 10 MG TAB Take one(1) tablet daily. Problem List As Of Date 08/22/2024 Noted Resolved LOCAL SUPRFICIAL SWELLNG [R22.9] 03/10/2007 LIPOMA NOS [D17.9] 10/04/2007 Neck and shoulder pain [M54.2, M25.519] 12/06/2018 Attention deficit hyperactivity disorder (ADHD)*10/19/1994 Hyperlipidemia [E78.5] 01/12/2015 Mild intermittent asthma [J45.20] 01/12/2015 Thoracic outlet syndrome [G54.0] 06/06/2016 Medications Discontinued During This Encounter Prescriptions - diclofenac sodium (VOLTAREN) 1 % topical gel (Discontinued) Reported on 08/22/2024 - albuterol HFA (PROAIR HFA) 90 mcg/actuation inhaler (Discontinued) Reported on 07/02/2020 - albuterol HFA (PROAIR HFA) 90 mcg/actuation inhaler (Discontinued) Reported on 01/25/2020 - predniSONE (DELTASONE) 20 mg tablet (Discontinued) Reported on 01/25/2020 - fluticasone (FLONASE) 50 mcg/actuation nasal spray (Discontinued) Reported on 01/25/2020 Disposition: Return in 1 year (on 08/22/2025) for Annual Exam. Follow-up and Disposition History for Encounter Date Provider Department Center 08/22/2024 [id number]-GNCOCYHMARY RUSSELL [facility] Encounter Status:Closed by MARY RUSSELL on 08/22/24 PROGRESS Observed: 08/22/2024 10:29 AM Status: COMPLETED Source: [facility] HNO ID: [id number] Author: MARY RUSSELL APRN.MOTEL MAID Service: ? Author Type: Nurse Practitioner Type: Progress Notes Filed: 08/22/2024 11:09 Note Text: Patient declined manager specialtyNatty Farias is a 44 year old who presents for an annual gynecologic exam without complaints. Menses: cycles irregular menses past two years- Mirena IUD. LMP 08/07/2024 Contraception: tubal sterilization, Mirena HPV vaccine: N/A Last Pap: Pt reported as unknown, has not seen [facility] provider. HPV: unknown History of abnormal pap: No Pt reported Last mammogram: 2018 diagnostic (LT) breast pain Sexually active: Yes Pain with intercourse: No Postcoital bleeding: No Hot flashes: No Night sweats: No OB History T0 L1 SAB0 IAB0 Ectopic0 Multiple0 Live Births0 Supplier Quality Engineer History LMP: LMP Unknown, IUD Age at Menarche: Age at First : Age at Menopause: Supplier Quality Engineer History Comments: Sexual Activity: Not Asked; No partner data on record Contraception: I.U.D. PAST MEDICAL HISTORY Diagnosis Date ADD (attention deficit disorder) Anxiety Depression Localized superficial swelling, mass, or lump 03/31/07 BACK NEGATIVE MEDICAL HISTORY PAST SURGICAL HISTORY Procedure Laterality Date EXCISION TUMOR SOFT TISSUE BACK/FLANK SUBQ <3CM 03/31/2007 7 cm lipoma LAPAROSCOPIC TUBAL LIGATION/RING/CLIP 03/12/2017 LAPAROSCOPIC LIGATION TUBAL FILSHIE CLIPS TONSILLECTOMY HX 2009 FAMILY HISTORY Problem Relation Age of Onset Cervical Cancer Mother Diabetes Mother SOCIAL HISTORY Social History Tobacco Use Smoking status: Former Current packs/day: 0.25 Average packs/day: 0.3 packs/day for 36.8 years (9.2 ttl pk-yrs) Types: Cigarettes Start date: 10/19/1987 Smokeless tobacco: Never Substance Use Topics Alcohol use: Yes Comment: 3-4/month Drug use: No REVIEW OF SYSTEMS Abdomen: No abdominal pain, nausea, vomiting, diarrhea, or constipation. No bloating, early satiety, indigestion, or increased flatulence. Bladder: No dysuria, gross hematuria, urinary frequency, urinary urgency, or incontinence. Breast: No breast lumps, nipple d/c, overlying skin changes, redness or skin retraction. Allergies and current medication updated:Yes SENSITIVE EXAM: The sensitive examination was discussed with the Patient or Patient's Authorized Jig Grinder. As applicable, any other physician, advance practice provider, medical student, or other health professional student that will be observing or involved in the sensitive examination for educational or training purposes was discussed with the Patient or Authorized Jig Grinder. The Patient or Authorized Jig Grinder has agreed to proceed with the sensitive examination. (Sensitive examination includes inspection and/or palpation of the breasts, pelvis, prostate and anorectal regions). EXAM: There were no vitals taken for this visit. GENERAL: pleasant, female in no apparent distress HEENT: Normocephalic, atraumatic, mucus membranes moist, and no lesions NECK: Supple, full range of motion, no adenopathy, and thyroid normal DERMATOLOGY: Normal, without lesions, non-icteric, and non-hirsute BREAST: soft, non-tender, symmetric, no dominant mass, normal nipple-areolar complex, no lymphadenopathy, and no nipple discharge CHEST: Normal inspiratory effort ABDOMEN: soft, non-tender, and no masses PELVIC: external genitalia normal, normal Bartholin's glands, urethra, [place]'s glands, no vulvar lesions, no cervical lesions, physiologic discharge present, normal appearing perineal body and perianal region, IUD strings visible BIMANUAL: uterus normal size, shape and consistency, no adnexal masses, and non-tender RECTOVAGINAL: deferred. NEURO: alert and oriented x3,exam grossly non-focal EXTREMITIES: normal ASSESSMENT/PLAN: 1) Health maintenance: Pap done with HPV. Mammogram ordered. Nutrition, exercise and routine health maintenance exams reviewed. Calcium/Vitamin D supplementation information provided. Colon cancer screening: Cologuard 2023 negative 2) Contraception: tubal sterilization. Contraceptive options reviewed and information provided. 3) STD screening: Declined STD check. 4) Follow up one year or sooner as needed 5) Mirena removal and reinsertion ordered Mary Russell APRN.MOTEL MAID ALLERGIES DATE TYPE / CODE NAME / CODE REACTION SEVERITY SOURCE 09/30/2021 DRUG INGREDI/[id number] 3(SNOMED CT) SHELLFISH DERIVED Vomiting [facility] Drug Class/[id number]( SNOMED CT) NO KNOWN ALLERGIES [facility] ENCOUNTERS ADMIT/DISCHARGE ACCOUNT NUMBER ADMITTING ENCOUNTER CLASS LOC ATION SOURCE 11/28/2024/ 5 [id number] [id number] [facility] PAYERS ENCOUNTER GUARANTOR PAYER SUBSCRIBER SOURCE 11/28/2024 Primary Insurance:[employer] MEDICAIDPolicy Number: [id number] Date:[id number] Name:Lissette LUNA: [id number] [place] [address] [facility] 08/22/2024 Primary Insurance:[employer] MEDICAIDPolicy Number: [id number] Date:[id number] Name:Lissette LUNA: [id number] [address] [place] [address] [facility]
[2025-07-17 12:18] LABS: Hematocrit 37.2 % (37-47); Hemoglobin 12.2 g/dL (12.0-15.0); Immature Granulocytes Count 0.010 X10^3/uL (0.0-0.0); Mean Corp Hgb Conc 32.8 g/dL (32-36); Mean Corpuscular Volume 82.5 fL (81-99); Mean Platelet Vol. 11.1 fl (6.2-12.0); NRBC Flagged by Analyzer 0 % (0-5); Platelet Count 312 K/mm3 (150-450); RBC Distribution Width CV 13.7 % (11.6-14.6); RBC Distribution Width SD 41.3 fl (35.1-43.9); Red Blood Count 4.51 M/mm3 (4.2-5.4); White Blood Count 8.4 K/mm3 (4.4-11.0)
[2025-07-17 13:17] LABS: Creatinine, Urine (random) 142.00 mg/dL (28.00-217.00); Microalbumin,Random Urine < 12.0 mg/L (<20 mg/L)
[2025-07-17 13:18] LABS: AST(SGOT) 12 U/L (<=31); Alanine Aminotransfer ALT/SGPT 10 U/L (<=34); Albumin, Serum 4.2 g/dL (3.5-5.0); Alkaline Phosphatase 81 U/L (35-104); Anion Gap 10 (5-15); BUN 11 mg/dL (4-19); BUN/Creat Ratio 17.4 RATIO (10-20); Calcium,Total 9.2 mg/dL (7.6-11.0); Carbon Dioxide 22.9 mmol/L (21.0-32.0); Chloride 104 mmol/L (98-108); Cholesterol 242 mg/dL (<=200); Globulin 2.5 g/dL (2.2-4.2); Glucose 117 mg/dL (70-99); Low Density Lipoprotein Calc. 174 mg/dL; Potassium 4.0 mmol/L (3.3-5.1); Triglycerides 165 mg/dL; Very Low Density Lipoprotein 33 mg/dL (5-40); cholesterol:hdl ratio screen 6.93
== END | disposition home or self-care (01) ==
LOC: MTLAB 10:40
PROVIDERS: PCP Family Medicine; Referring Provider Family Medicine; Visit Provider Family Medicine
DX: E11.9 Type 2 diabetes mellitus without complications (principal); E78.5 Hyperlipidemia, unspecified; Z51.81 Encounter for therapeutic drug level monitoring; D64.9 Anemia, unspecified
CPT/HCPCS: 36415; 80053; 80061; 82043; 82570; 85025